=== PATIENT | male | born 1930 | race Caucasian/White ===

== ENCOUNTER 2016-10-31 13:46 | Emergency (ER) | payer OTHER ==
[~2016-10-31] VITALS: Ht 170.2 cm; Wt 90.0 kg
[~2016-10-31 13:46] MED LIST: TAMS0.4C67 PO
[2016-10-31 13:50] VITALS: BP 182/108; PULSE 101; RESP 16; TEMP 97.5; O2SAT 96
--- NOTE | 2016-10-31 14:05 | PD ---
HPI Chief Complaint: Complaint Time Seen by Provider: 14:03 Travel History International Travel<30 days: No Contact w/Intl Traveler<30days: No Traveled to known affect area: No History of Present Illness HPI 85-year-old male with PMH of non-Hodgkin's lymphoma, prostate cancer, IBS presents to the ED for evaluation of ~ 24 hour history of anuria. Patient denies headache, fever, chills, chest pain, shortness of breath, abdominal pain , anorexia, changes in bowel habits, nausea, vomiting, dysuria, weakness of the lower extremities. The patient's daughter is at bedside, she is a nurse and states that she administers his medications. She thinks he may been taking double doses of Flomax, and stopped his doses for the last 2 days. Patient is followed by primary care, Dr. Resendiz urology. PFSH Past Medical History Arthritis: Yes (spondilosis) Cancer: Yes (NON-HODGKINS LYMPHONA,prostate ca- hormonone shots) Cardiovascular Problems: No Chemotherapy: Yes (5-10 YEARS AGO) Diminished Hearing: Yes (KLAMATH) Endocrine: No Gastrointestinal Disorders: Yes (IBS) Genitourinary: No Hypertension: Yes Immune Disorder: No Musculoskeletal: No Neurologic: No Psychiatric: No Reproductive: No Respiratory: No Past Surgical History Abdominal Surgery: Yes (gallbladder, appendix) Appendectomy: Yes Cholecystectomy: Yes Other Surgery: Yes (see hx) Social History Alcohol Use: Yes (SOC) Tobacco Use: No Substance Use: No Allergies-Medications (Allergen,Severity, Reaction): Coded Allergies: Bee Sting (Verified Allergy, Severe, Anaphylaxis, 10/31/16) Penicillin (Verified Allergy, Intermediate, Swelling, 10/31/16) Vancomycin (Verified Allergy, Intermediate, Rash, 10/31/16) rash all over body Reported Meds & Prescriptions Reported Meds & Active Scripts Active Reported Flomax (Tamsulosin HCl) 0.4 Mg Cap 0.4 Mg PO HS Review of Systems Except as stated in HPI: all other systems reviewed are Neg Physical Exam Narrative GENERAL: Well-nourished, well-developed nontoxic appearing white male in mild to moderate distress. SKIN: Warm and dry. HEAD: Normocephalic. EYES: No scleral icterus. No injection or drainage. NECK: Supple, trachea midline. No JVD or lymphadenopathy. CARDIOVASCULAR: Regular rate and rhythm without murmurs, gallops, or rubs. 2+ DP and radial pulses bilaterally. RESPIRATORY: Breath sounds clear and equal bilaterally. No accessory muscle use. GASTROINTESTINAL: Abdomen protuberant, soft, non-tender, nondistended. Active bowel sounds. MUSCULOSKELETAL: No cyanosis, or edema. The patient is ambulatory, moves extremities spontaneously. BACK: Nontender without obvious deformity. No CVA tenderness. Data Data Last Documented VS Vital Signs Date Time Temp Pulse Resp B/P Pulse Ox O2 Delivery O2 Flow Rate FiO2 10/31/16 16:09 100 17 122/81 95 Room Air 10/31/16 13:50 97.5 Orders Complete Blood Count With Diff (10/31/16 14:05) Comprehensive Metabolic Panel (10/31/16 14:05) Urinalysis - C+S If Indicated (10/31/16 14:05) Iv Access Insert/Monitor (10/31/16 14:05) Sodium Chloride 0.9% Flush (Ns Flush) (10/31/16 14:15) Urinary Catheter Insert/Apply (10/31/16 14:05) Labs Laboratory Tests Test 10/31/16 10/31/16 14:25 14:35 White Blood Count 8.4 TH/MM3 Red Blood Count 4.98 MIL/MM3 Hemoglobin 15.2 GM/DL Hematocrit 44.4 % Mean Corpuscular Volume 89.1 FL Mean Corpuscular Hemoglobin 30.5 PG Mean Corpuscular Hemoglobin 34.2 % Concent Red Cell Distribution Width 14.4 % Platelet Count 259 TH/MM3 Mean Platelet Volume 7.3 FL Neutrophils (%) (Auto) 65.6 % Lymphocytes (%) (Auto) 27.5 % Monocytes (%) (Auto) 6.1 % Eosinophils (%) (Auto) 0.3 % Basophils (%) (Auto) 0.5 % Neutrophils # (Auto) 5.5 TH/MM3 Lymphocytes # (Auto) 2.3 TH/MM3 Monocytes # (Auto) 0.5 TH/MM3 Eosinophils # (Auto) 0.0 TH/MM3 Basophils # (Auto) 0.0 TH/MM3 CBC Comment DIFF FINAL Differential Comment Sodium Level 139 MEQ/L Potassium Level 4.3 MEQ/L Chloride Level 105 MEQ/L Carbon Dioxide Level 28.5 MEQ/L Anion Gap 6 MEQ/L Blood Urea Nitrogen 26 MG/DL Creatinine 1.77 MG/DL Estimat Glomerular Filtration 37 ML/MIN Rate Random Glucose 106 MG/DL Calcium Level 9.2 MG/DL Total Bilirubin 0.5 MG/DL Aspartate Amino Transf 17 U/L (AST/SGOT) Alanine Aminotransferase 18 U/L (ALT/SGPT) Alkaline Phosphatase 63 U/L Total Protein 8.4 GM/DL Albumin 3.7 GM/DL Urine Color YELLOW Urine Turbidity CLEAR Urine pH 5.0 Urine Specific [place] 1.017 Urine Protein TRACE mg/dL Urine Glucose (UA) NEG mg/dL Urine Ketones NEG mg/dL Urine Occult Blood TRACE Urine Nitrite NEG Urine Bilirubin NEG Urine Urobilinogen LESS THAN 2.0 MG/DL Urine Leukocyte Esterase NEG Urine RBC 1 /hpf Urine WBC LESS THAN 1 /hpf Urine Squamous Epithelial <1 /hpf Cells Urine Bacteria RARE /hpf Microscopic Urinalysis Comment CULT NOT INDICATED MDM Medical Decision Making Medical Screen Exam Complete: Yes Emergency Medical Condition: Yes Differential Diagnosis Urinary retention versus urinary obstruction versus CHANDNI versus dehydration versus electrolyte abnormality versus other Narrative Course 85-year-old male with PMH of non-Hodgkin's lymphoma, prostate cancer, IBS presents to the ED for evaluation of ~ 24 hour history of anuria. Patient denies headache, fever, chills, chest pain, shortness of breath, abdominal pain , anorexia, changes in bowel habits, nausea, vomiting, dysuria, weakness of the lower extremities. The patient's daughter is at bedside, she is a nurse and states that she administers his medications. She thinks he may been taking double doses of Flomax, and stopped his doses for the last 2 days. Patient is followed by primary care, Dr. Resendiz urology. Vitals reviewed. Physical exam reveals a nontoxic-appearing elderly white male in mild to moderate distress. Abdomen is soft, tender in the suprapubic region. No CVA tenderness. No lower extremity edema. Salgado catheter was inserted and 400 cc of pale, clear urine were drained immediately. Over the course of treatment presently 800 cc of urine were collected. CBC is unremarkable. CMP with BUN of 26, creatinine 1.77. Creatinine similar to patient's baseline. No culture indicated of the UA. Call placed to Dr. Resendiz who agrees to see the patient in the office for follow-up. Discussed the patient, laboratory results, plan of care with Dr. Fernandez who is amenable. Patient is instructed to resume Flomax, leave the catheter indwelling until seen by urology, call Dr. Resendiz's office tomorrow morning for follow-up appointment. The patient and his family indicated understanding of the instructions, are amenable to the plan of care. The patient is stable and discharged home. Diagnosis Primary Impression: Urinary retention Referrals: Urologist Patient Instructions: Salgado Catheter Placement and Care (ED), General Instructions, Urinary Retention in Men (ED) Additional Instructions: Restart Flomax as previously prescribed. Call Dr. Resendiz's office for follow up appointment tomorrow morning. Leave catheter in place until removed by Dr. Resendiz Return to the ED for any urgent or emergent medical condition. Disposition: 01 DISCHARGE HOME Condition: Stable Lyn Rubin Oct 31, 2016 14:05
[2016-10-31] MEDS ORDERED: SODIUM CHLORIDE 0.9% FLUSH 5 ML FLUSH IVF PRN (14:15)
[2016-10-31] MEDS ORDERED: TAMS5CAP PO (14:25)
[2016-10-31 15:01] LABS: BACTERIA, URINE RARE /hpf; BLOOD, URINE TRACE (NEG); COMMENT (UR) CULT NOT INDICATED; CULTURE IF INDICATED CULT NOT INDICATED; GLUCOSE,URINE NEG (NEG); KETONE, URINE NEG (NEG); NITRITE,URINE NEG (NEG); SQUAMOUS EPITHELIAL CELL URINE <1 /hpf (0-5); URINE COLOR YELLOW (YELLW/STRAW)
[2016-10-31 15:04] LABS: AUTOMATED NEUTROPHIL # 5.5 TH/MM3 (1.8-7.7); BASOPHIL % 0.5 % (0.0-2.0); EOSINOPHIL % 0.3 % (0.0-4.0); HEMATOCRIT 44.4 % (39.0-51.0); HEMO FLAGS DIFF FINAL; LYMPH % 27.5 % (9.0-44.0); LYMPHOCYTE # 2.3 TH/MM3 (1.0-4.8); MEAN CELL VOLUME 89.1 FL (80.0-100.0); MEAN CORPUSCULAR HEMOGLOBIN 30.5 PG (27.0-34.0); MEAN CORPUSCULAR HGB CONC 34.2 % (32.0-36.0); MONO % 6.1 % (0.0-8.0); NEUT % 65.6 % (16.0-70.0); PLATELET COUNT 259 TH/MM3 (150-450); RED BLOOD COUNT 4.98 MIL/MM3 (4.50-5.90); RED CELL DISTRIBUTION WIDTH 14.4 % (11.6-17.2); WHITE BLOOD COUNT 8.4 TH/MM3 (4.0-11.0)
[2016-10-31 15:14] LABS: ALT (GPT) 18 U/L (12-78); ANION GAP 6 MEQ/L (5-15); AST (GOT) 17 U/L (15-37); BICARBONATE 28.5 MEQ/L (21.0-32.0); BLOOD UREA NITROGEN 26 MG/DL (7-18); CHLORIDE 105 MEQ/L (98-107); GLOMERULAR FILTRATION RATE 37 ML/MIN (>89); POTASSIUM 4.3 MEQ/L (3.5-5.1); SODIUM (NA) 139 MEQ/L (136-145)
[2016-10-31 15:16] LABS: ALKALINE PHOSPHATASE 63 U/L (45-117); TOTAL BILIRUBIN ADULT 0.5 MG/DL (0.2-1.0)
[2016-10-31 16:09] VITALS: BP 122/81; PULSE 100; RESP 17; O2SAT 95
== END 2016-10-31 16:25 | disposition home or self-care (01) ==
LOC: NETRI 13:46
DX: R33.9 Retention of urine, unspecified (principal); I10 Essential (primary) hypertension
CPT/HCPCS: 51702; 80053; 81001; 85025

== ENCOUNTER 2017-10-06 07:23 | Emergency (ER) | payer OTHER ==
[~2017-10-06] VITALS: Ht 167.6 cm; Wt 85.0 kg
[~2017-10-06 07:23] MED LIST changes: -TAMS0.4C67 PO; +TAMS5CAP PO
[2017-10-06 07:32] VITALS: BP 164/96; PULSE 114; RESP 22; TEMP 98.2; O2SAT 93
--- NOTE | 2017-10-06 07:57 | PD ---
HPI Chief Complaint: Complaint Time Seen by Provider: 07:44 Travel History International Travel<30 days: No Contact w/Intl Traveler<30days: No Traveled to known affect area: No History of Present Illness HPI The patient is a 86-year-old male who presents to the emergency department for inability to urinate since last night. The patient complains of mild overflow incontinence, states he's been to the bathroom multiple times, but is unable to urinate. He does have a history of similar symptoms in the past and has a history of prostate cancer. The patient is followed by his urologist, Dr. Resendiz, as well as his oncologist, Dr. Prieto. The patient does complain of mild abdominal distention and pain. He denies any nausea, vomiting, or low back pain. Symptoms are moderate, exacerbated by the inability urinate, and there are no current alleviating factors. He denies any CC fever. PFSH Past Medical History Arthritis: Yes (spondilosis) Cancer: Yes (NON-HODGKINS LYMPHONA,prostate ca- hormonone shots) Cardiovascular Problems: No Chemotherapy: Yes Diminished Hearing: Yes (TAZLINA) Endocrine: No Gastrointestinal Disorders: Yes (IBS) Genitourinary: No Hypertension: Yes Immune Disorder: No Musculoskeletal: No Neurologic: No Psychiatric: No Reproductive: No Respiratory: No Past Surgical History Abdominal Surgery: Yes (gallbladder, appendix) Appendectomy: Yes Cholecystectomy: Yes Other Surgery: Yes (see hx) Social History Alcohol Use: Yes (SOC) Tobacco Use: No Substance Use: No Allergies-Medications (Allergen,Severity, Reaction): Coded Allergies: bee venom protein (honey bee) (Unverified Allergy, Severe, Anaphylaxis, ) penicillin G (Unverified Allergy, Intermediate, Swelling, 05/20/17) vancomycin (Unverified Allergy, Intermediate, Rash, 05/20/17) rash all over body Reported Meds & Prescriptions Reported Meds & Active Scripts Active Reported Flomax (Tamsulosin HCl) 0.4 Mg Cap 0.4 Mg PO HS Review of Systems Except as stated in HPI: all other systems reviewed are Neg General / Constitutional: No: Fever Cardiovascular: No: Chest Pain or Discomfort Respiratory: No: Shortness of Breath Gastrointestinal: Positive: Abdominal Pain, No: Nausea, Vomiting Genitourinary: Positive: Decreased Urinary Output, Hesitancy, Dribbling, Incontinence, Pelvic Pain, No: Dysuria Skin: Positive Rash Physical Exam Narrative GENERAL: Awake, alert, pleasant 86-year-old male who appears his stated age and is in no acute respiratory distress. He does appear moderate discomfort. SKIN: Focused skin assessment warm/dry. Patient has a slightly erythematous, slightly excoriated rash and medial aspect of the thighs bilateral, appears to be from repetitive contact, thigh against 5. HEAD: Atraumatic. Normocephalic. EYES: No injection or drainage. ENT: No nasal bleeding or discharge. Mucous membranes pink and moist. NECK: Trachea midline. No JVD. CARDIOVASCULAR: Regular, tachycardic with a heart rate of 105. RESPIRATORY: No accessory muscle use. Clear to auscultation. Breath sounds equal bilaterally. GASTROINTESTINAL: Abdomen distended in the suprapubic region. Old surgical scars noted. MUSCULOSKELETAL: No obvious deformities. No clubbing. No cyanosis. No edema. NEUROLOGICAL: Awake and alert. No obvious cranial nerve deficits. Motor grossly within normal limits. Normal speech. PSYCHIATRIC: Appropriate mood and affect; insight and judgment normal. Data Data Last Documented VS Vital Signs Date Time Temp Pulse Resp B/P (MAP) Pulse Ox O2 Delivery O2 Flow Rate FiO2 10/06/17 07:32 98.2 114 22 164/96 (118) 93 Orders Orders Urinary Catheter Insert/Apply (10/06/17 07:53) Urinalysis - C+S If Indicated (10/06/17 07:53) Basic Metabolic Panel (Bmp) (10/06/17 07:53) Ed Discharge Order (10/06/17 09:06) Labs Laboratory Tests Test 10/06/17 08:15 Urine Color YELLOW Urine Turbidity CLEAR Urine pH 5.0 Urine Specific [place] 1.010 Urine Protein NEG mg/dL Urine Glucose (UA) NEG mg/dL Urine Ketones NEG mg/dL Urine Occult Blood MOD Urine Nitrite NEG Urine Bilirubin NEG Urine Urobilinogen LESS THAN 2.0 MG/DL Urine Leukocyte Esterase NEG Urine RBC 77 /hpf Urine WBC LESS THAN 1 /hpf Urine Amorphous Sediment RARE Urine Mucus FEW /lpf Microscopic Urinalysis Comment CATH-CULT NOT IND Blood Urea Nitrogen 46 MG/DL Creatinine 3.07 MG/DL Random Glucose 133 MG/DL Calcium Level 8.9 MG/DL Sodium Level 137 MEQ/L Potassium Level 6.0 MEQ/L Chloride Level 106 MEQ/L Carbon Dioxide Level 23.2 MEQ/L Anion Gap 8 MEQ/L Estimat Glomerular Filtration Rate 19 ML/MIN MDM Medical Decision Making Medical Screen Exam Complete: Yes Emergency Medical Condition: Yes Medical Record Reviewed: Yes Interpretation(s) Laboratory Tests Test 10/06/17 08:15 Urine Color YELLOW Urine Turbidity CLEAR Urine pH 5.0 Urine Specific [place] 1.010 Urine Protein NEG mg/dL Urine Glucose (UA) NEG mg/dL Urine Ketones NEG mg/dL Urine Occult Blood MOD Urine Nitrite NEG Urine Bilirubin NEG Urine Urobilinogen LESS THAN 2.0 MG/DL Urine Leukocyte Esterase NEG Urine RBC 77 /hpf Urine WBC LESS THAN 1 /hpf Urine Amorphous Sediment RARE Urine Mucus FEW /lpf Microscopic Urinalysis Comment CATH-CULT NOT IND Blood Urea Nitrogen 46 MG/DL Creatinine 3.07 MG/DL Random Glucose 133 MG/DL Calcium Level 8.9 MG/DL Sodium Level 137 MEQ/L Potassium Level 6.0 MEQ/L Chloride Level 106 MEQ/L Carbon Dioxide Level 23.2 MEQ/L Anion Gap 8 MEQ/L Estimat Glomerular Filtration Rate 19 ML/MIN Differential Diagnosis Differential diagnosis includes urinary retention, BPH, prostate cancer, UTI, acute kidney injury, dehydration. Narrative Course A bedside ultrasound was performed which reveals a distended bladder up to the umbilicus. Therefore, Salgado catheter was ordered. UA was sent to lab. BMP was sent to lab. The patient's UA reveals RBCs, no evidence of infection. The patient had over 800 cc of clear yellow output, his symptoms significantly improved. Creatinine was elevated at 3.07, last creatinine was 1.77 October. I do discussion with family members who do state that the patient has had elevated creatinines in the past. The patient will be provided a copy of his labs and his Salgado catheter was changed to a leg bag. He is advised to follow-up with his urologist and primary physician. Return if symptoms worsen or progress. Diagnosis Primary Impression: Urinary retention Patient Instructions: General Instructions Additional Instructions: Continue Flomax as previously directed. Follow-up with your urologist and primary physician. You will need repeat creatinine studies. Return if symptoms worsen or progress. Med/Other Pt SpecificInfo: No Change to Meds Disposition: 01 DISCHARGE HOME Condition: Stable Maurice Hart MD Oct 06, 2017 07:57
[2017-10-06 08:32] LABS: AMORPHOUS SEDIMENT, URINE RARE; BILIRUBIN, URINE NEG (NEG); BLOOD, URINE MOD (NEG); GLUCOSE,URINE NEG (NEG); KETONE, URINE NEG (NEG); MUCUS URINE FEW /lpf (OCC); NITRITE,URINE NEG (NEG); URINE COLOR YELLOW (YELLW/STRAW); URINE LEUKOCYTE ESTERASE NEG (NEG)
[2017-10-06 08:45] LABS: BICARBONATE 23.2 MEQ/L (21.0-32.0); CALCIUM 8.9 MG/DL (8.5-10.1); CREATININE 3.07 MG/DL (0.60-1.30)
[2017-10-06 09:17] VITALS: BP 156/82
== END 2017-10-06 09:49 | disposition home or self-care (01) ==
LOC: NEPC 07:23
DX: R33.9 Retention of urine, unspecified (principal); R21 Rash and other nonspecific skin eruption; M19.90 Unspecified osteoarthritis, unspecified site; I10 Essential (primary) hypertension; Z79.899 Other long term (current) drug therapy; Z88.0 Allergy status to penicillin; Z85.46 Personal history of malignant neoplasm of prostate; Z87.19 Personal history of other diseases of the digestive system; Z88.5 Allergy status to narcotic agent
CPT/HCPCS: 51702; 80048; 81001

== ENCOUNTER 2018-08-30 15:07 | Inpatient (IN) ==
--- NOTE | 2018-08-30 18:33 | ED ---
HPI General Chief complaint: Weakness Stated complaint: Neck Pain Time Seen by Provider: 08/30/18 17:27 Source: family Mode of arrival: wheelchair Limitations: other (confused) History of Present Illness HPI Narrative: Patient is an 87-year-old male presented to the emerge department with his daughter for evaluation of weakness, decreased appetite and increased confusion. Daughter states is been ongoing for a week. She states that he is not eating or drinking very much. She reports that he normally is able to walk with a walker but now needs to be transported with a wheelchair. She states that he is acting more confused. She states that he is complaining of neck pain, she has been giving him Aleve twice daily. She states this is not helping. Patient's daughter has not attempted to contact the primary doctor. She reports a history of prostate cancer and lymphoma. Daughter denies any falls or head injuries. Patient is stating that he is cold and does not offer any further information. MD Complaint: Reports generalized weakness Onset (ago): week(s) Duration: constant Location: Reports generalized Migration: Reports none Severity: moderate Relieving factors: none Exacerbating factors: none Associated symptoms: Reports confusion and myalgias Related Data Home Medications Medication Instructions Recorded Confirmed aspirin 81 mg PO DAILY 08/30/18 08/30/18 mirabegron [Myrbetriq] 25 mg PO DAILY 08/30/18 08/30/18 tamsulosin [Flomax] 0.4 mg PO BID 08/30/18 08/30/18 Allergies Allergy/AdvReac Type Severity Reaction Status Date / Time bee venom protein (honey bee) Allergy Severe Anaphylaxis Unverified 05/20/17 17: 08 penicillin G Allergy Intermediate Swelling Unverified 05/20/17 17:08 vancomycin Allergy Intermediate Rash Unverified 05/20/17 17:08 Review of Systems ROS: all other systems reviewed are negative [facility] Medical History Medical History Lymphoma (Acute) Overactive bladder (Acute) Prostate CA (Acute) Social History Social History Substance History: No History of Abuse Second Hand Smoke Exposure: No Smoking Status: Former smoker Tobacco Type: Cigarettes How Often Do You Have a Drink Containing Alcohol: Never Recent Travel in [facility] within the Last 8 Weeks: No Recent Out of Country Travel within the Last 8 Weeks: No Immunization History Tetanus Immunization: Unsure Exam Narrative Exam Narrative: GENERAL: Well-developed, well-nourished, alert elderly male. Presenting in no acute distress. SKIN: Focused skin assessment warm/dry. HEAD: Atraumatic. Normocephalic. EYES: Pupils equal and round. No scleral icterus. No injection or drainage. ENT: No nasal bleeding or discharge. Mucous membranes pink and moist. NECK: Trachea midline. No JVD. CARDIOVASCULAR: Regular rate and rhythm. No murmur appreciated. RESPIRATORY: No accessory muscle use. Clear, diminished in bases. GASTROINTESTINAL: Abdomen firm, mildly tender diffusely, mildly distended. Hepatic and splenic margins not palpable. Positive bowel sounds. MUSCULOSKELETAL: No obvious deformities. No clubbing. No cyanosis. No edema. NEUROLOGICAL: Awake and alert. No obvious cranial nerve deficits. Motor grossly within normal limits. Normal speech. PSYCHIATRIC: Appropriate mood and affect; insight and judgment impaired. Course Initial Documented Vital Signs Temperature 98 F 08/30/18 15:20 Pulse Rate 95 H 08/30/18 15:20 Respiratory Rate 20 08/30/18 15:20 Blood Pressure 151/80 H 08/30/18 15:20 Pulse Oximetry 99 08/30/18 15:20 Last Documented Vital Signs Temperature 97.9 F 08/30/18 22:09 Pulse Rate 116 H 08/30/18 22:09 Respiratory Rate 22 08/30/18 22:09 Blood Pressure 147/89 H 08/30/18 22:36 Pulse Oximetry 95 08/30/18 22:09 Medical Decision Making [facility] Narrative Medical decision making narrative: Patient presented for evaluation of generalized weakness. Labs and imaging ordered and pending. Patient's vital signs are stable. Patient was placed on electronic device monitor, continuous pulse oximetry. IV access was established. Daughter is at bedside. EKG reviewed. Chemistry with elevated BUN and creatinine of 156/16.3, K+ 6.7. Medications ordered to correct electrolyte abnormality. CT of the abdomen shows distended urinary bladder, likely outlet obstruction, enlarged prostate. A urinary catheter was placed and 1500cc urine drained. Initially patient was straight cathed for urine sample and 1200cc was obtained at that time. UA and CBC with no acute findings however HGB trended down since prior in October 2017. Ct of the brain and cervical spine with no acute findings, CXR with no acute disease. Findings discussed with my attending. Discussed with Dr. Mcfadden, nephrology who recommended IVF and urinary catheter. Paged [facility] for admit, discussed with Dr. Marina who accepted admit. Orders placed. Discussed with family at bedside, all questions answered. Medical Screen Exam Complete: Yes Emergency Medical Condition: Yes Differential Diagnosis Differential Diagnosis: UTI versus metabolic abnormality versus TIA versus other Medical Records Medical records reviewed: Yes I reviewed the patient's medical records. Lab Data Lab results reviewed: Yes I reviewed the patient's lab results. Result diagrams: 08/30/18 18:00 08/30/18 18:00 Lab Results 08/30/18 08/30/18 08/30/18 Range/Units 18:00 18:00 Unknown WBC 10.4 (4.0-11.0) th/mm3 RBC 3.28 L (4.50-5.90) mil/mm3 Hgb 10.8 L (13.0-17.0) gm/dL Hct 31.5 L (39.0-51.0) % MCV 96.2 (80.0-100.0) fL MCH 32.9 (27.0-34.0) pg MCHC 34.2 (32.0-36.0) % RDW 13.5 (11.6-17.2) % Plt Count 304 (150-450) th/mm3 MPV 7.3 (7.0-11.0) fL Neut % (Auto) 81.6 H (16.0-70.0) % Lymph % (Auto) 12.7 (9.0-44.0) % [place] % (Auto) 4.1 (0.0-8.0) % Eos % (Auto) 1.2 (0.0-4.0) % Baso % (Auto) 0.4 (0.0-2.0) % Neut # (Auto) 8.5 H (1.8-7.7) th/mm3 Lymph # (Auto) 1.3 (1.0-4.8) th/mm3 [place] # (Auto) 0.4 (0.0-0.9) th/mm3 Eos # (Auto) 0.1 (0.0-0.4) th/mm3 Baso # (Auto) 0.0 (0.0-0.2) th/mm3 WBC Differential . Differential Comment Auto diff final Sodium 134 L (136-145) meq/L Potassium 6.7 H* (3.5-5.1) meq/L Chloride 101 (98-107) meq/L Carbon Dioxide 16.3 L (21.0-32.0) meq/L Anion Gap 17 H (5-15) meq/L BUN 156 H (7-18) mg/dL Creatinine 16.36 H* (0.60-1.30) mg/dL Estimated GFR 3 L (>89) mL/min Random Glucose 94 (74-106) mg/dL Calcium 6.5 L* (8.5-10.1) mg/dL Prot Corrected Calcium 6.4 L* (8.5-10.1) mg/dL Magnesium 1.8 (1.5-2.5) mg/dL Total Bilirubin 1.4 H (0.2-1.0) mg/dL AST 18 (15-37) U/L ALT 14 (12-78) U/L Alkaline Phosphatase 45 (45-117) U/L Total Creatine Kinase 375 H (39-308) U/L CK-MB (CK-2) 9.5 H (0.5-3.6) ng/mL CK-MB (CK-2) % 2.5 (0.0-4.0) % Troponin I 0.04 (0.02-0.05) ng/mL Total Protein 7.5 (6.4-8.2) g/dL Albumin 2.8 L (3.4-5.0) g/dL Urine Color Yellow (Yellw/Straw) Urine Clarity Clear (Clear) Urine pH 5.0 (5.0-8.5) Ur Specific [place] 1.011 (1.002-1.035) Urine Protein 30 H (Neg-Trace) mg/dL Urine Glucose (UA) Negative (Negative) mg/dL Urine Ketones Negative (Negative) mg/dL Urine Occult Blood Moderate H (Negative) Urine Nitrate Negative (Negative) Urine Bilirubin Negative (Negative) Urine Urobilinogen Less than 2 (Less than 2) mg/dL Ur Leukocyte Esterase Negative (Negative) Urine RBC 7 H (0-3) /hpf Urine WBC 1 (0-5) /hpf Urine Mucus Few H (Occasional) /lpf Micro UA Comment Culture not ind Ur Microscopic Review Not Reportable Urine Culture Comments Culture not ind Imaging Data Radiologist's impression: Chest X-Ray 08/30/18 18:00 CONCLUSION: 1. Senescent changes with mild bibasilar airspace disease, presumably atelectasis. 2. Bilateral pleural plaques. Head CT 08/30/18 18:00 CONCLUSION: 1. No acute intracranial abnormality. 2. Atrophy and chronic white matter changes. . Cervical Spine CT 08/30/18 18:01 CONCLUSION: 1. No fracture or subluxation of the cervical spine. 2. Multilevel degenerative changes as described. 3. Moderate chronic appearing spinal stenosis with probable short segment cord compression at C3/C4. Abdomen/Pelvis CT 08/30/18 19:21 CONCLUSION: 1. Markedly distended urinary bladder at the time of imaging and of concern for bladder outlet obstruction. Etiology uncertain but prostate is mildly enlarged. There is associated hydronephrosis of both kidneys. No stones are demonstrated. 2. Small hiatal hernia. 3. Atherosclerotic abdominal aorta. 4. 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 Discharge Plan Discharge Disposition Patient Disposition: 30 Still Patient Discharge Condition Condition: Stable Discharge Details Diagnosis: Acute renal failure, Bladder outlet obstruction, Prostate cancer, Weakness Physicians Team ED Provider: Melanie Sauer ED Midlevel Provider: Breanna Tapia Primary Care Provider: Margi Amaya Attending Provider: Janiya Marina Other Providers: Teresa Mcfadden ; [employer] Status ED Status: Left Department Discharge Information Discharge Date/Time: 08/30/18 22:09
--- NOTE | 2018-08-30 18:36 | XR ---
EXAM DATE: 08/30/2018 6:33 PM EST AGE/SEX: 87 years / Male INDICATIONS: Shortness of breath. CLINICAL DATA: This is the patient's initial encounter. Patient reports that signs and symptoms have been present for 1 day and indicates a pain score of Nonresponsive. MEDICAL/SURGICAL HISTORY: Non-responsive. Non-responsive. COMPARISON: [facility] – [place] ABDOM[place] & PELVIS W CONTRAST, 08/30/2018. . FINDINGS: Diffuse interstitial prominence with mild bibasilar airspace disease. Diffuse bilateral pleural plaqu es. Cardiac silhouette is in the upper limits of normal given portable technique. Bony thorax is inta ct. CONCLUSION: 1. Senescent changes with mild bibasilar airspace disease, presumably atelectasis. 2. Bilateral pleural plaques. Electronically signed by: Edison Robles MD 08/30/2018 6:35 PM EST
[2018-08-30 18:37] LABS: Baso % (Auto) 0.4 % (0.0-2.0); Eos # (Auto) 0.1 th/mm3 (0.0-0.4); Eos % (Auto) 1.2 % (0.0-4.0); Hematocrit 31.5 % (39.0-51.0); Hemoglobin 10.8 gm/dL (13.0-17.0); Lymph # (Auto) 1.3 th/mm3 (1.0-4.8); Lymph % (Auto) 12.7 % (9.0-44.0); Mean Corpuscular HGB Conc 34.2 % (32.0-36.0); Mean Corpuscular Hemoglobin 32.9 pg (27.0-34.0); Mean Corpuscular Volume 96.2 fL (80.0-100.0); Mean Platelet Volume 7.3 fL (7.0-11.0); Mono # (Auto) 0.4 th/mm3 (0.0-0.9); Mono % (Auto) 4.1 % (0.0-8.0); Neut # (Auto) 8.5 th/mm3 (1.8-7.7); Neut % (Auto) 81.6 % (16.0-70.0); Platelet Count 304 th/mm3 (150-450); Red Blood Count 3.28 mil/mm3 (4.50-5.90); Red Cell Distribution Width 13.5 % (11.6-17.2); White Blood Count 10.4 th/mm3 (4.0-11.0)
[2018-08-30 18:56] LABS: Bilirubin,Urine Negative (Negative); Clarity,Urine Clear (Clear); Color,Urine Yellow (Yellw/Straw); Glucose,Urine (UA) Negative (Negative); Leukocyte Esterase,Urine Negative (Negative); Mucus,Urine Few /lpf (Occasional); Nitrite,Urine Negative (Negative); Specific Gravity,Urine 1.011 (1.002-1.035)
[2018-08-30 19:08] LABS: Albumin 2.8 g/dL (3.4-5.0); Calcium 6.5 mg/dL (8.5-10.1); Carbon Dioxide 16.3 meq/L (21.0-32.0); Magnesium 1.8 mg/dL (1.5-2.5); Total Protein 7.5 g/dL (6.4-8.2); Troponin I 0.04 ng/mL (0.02-0.05)
[2018-08-30 19:10] LABS: Potassium 6.7 meq/L (3.5-5.1)
[2018-08-30 19:23] LABS: CKMB Percent 2.5 % (0.0-4.0); Creatine Kinase MB 9.5 ng/mL (0.5-3.6)
[2018-08-30] MEDS ORDERED: Dextrose 50% in Water 50 ML Vial IV.PUSH ONE (20:12)
[2018-08-30] MEDS ORDERED: Sodium Polystyrene Sulfonate/Sorbitol Liq 15 GM/60 ML UDC PO ONE (20:12)
[2018-08-30] MEDS ORDERED: Calcium Gluconate Inj 1 GM in Sodium Chlor 0.9% Inj 100 ML IV.SIG ONE (20:12)
--- NOTE | 2018-08-30 20:19 | CT ---
EXAM DATE: 08/30/2018 8:09 PM EST AGE/SEX: 87 years / Male INDICATIONS: Abdomen pain. CLINICAL DATA: This is the patient's initial encounter. Patient reports that signs and symptoms have been present for 1 day and indicates a pain score of 0/10. MEDICAL/SURGICAL HISTORY: Lymphoma. Carcinoma, prostatic. Appendectomy. Cholecystectomy. RADIATION DOSE: 7.74 CTDI (mGy) COMPARISON: [facility] [place], CT ABDOMEN & PELVIS W CONTRAST, 07/30/2014. . TECHNIQUE: Multiple contiguous axial images were obtained through the abdomen. Images were obtained using multiple row detector helical technique. Using automated exposure control and adjustment of the mA and/or kV according to patient size, radiation dose was kept as low as reasonably achievable to o btain optimal diagnostic quality images. DICOM format image data is available electronically for rev iew and comparison. FINDINGS: Noncontrast appearance of the liver, spleen, pancreas and adrenal glands is within normal l imits. Mild to moderate hydronephrosis/hydroureter seen of both kidneys. The urinary bladder is markedly dis tended. 4.8 cm prostate. 2 cm benign cyst of the right kidney is stable. No obstruction or acute inflammatory changes are seen of the gastrointestinal tract. No free fluid or free air. No lymphadenopathy demonstrated. There is a small hiatal hernia. Abdominal aorta is athero sclerotic. No aneurysm. No infiltrate or effusion of the visualized lung bases. Chronic calcified pleural plaques are again n oted. No lytic or sclerotic lesions or other acute abnormalities are seen of the visualized osseous structu res. CONCLUSION: 1. Markedly distended urinary bladder at the time of imaging and of concern for bladder outlet obstr uction. Etiology uncertain but prostate is mildly enlarged. There is associated hydronephrosis of bot h kidneys. No stones are demonstrated. 2. Small hiatal hernia. 3. Atherosclerotic abdominal aorta. 4. 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 Electronically signed by: Erwin Watson MD 08/30/2018 8:18 PM EST
--- NOTE | 2018-08-30 20:20 | CT ---
EXAM DATE: 08/30/2018 8:10 PM EST AGE/SEX: 87 years / Male INDICATIONS: Altered mental status. CLINICAL DATA: This is the patient's initial encounter. Patient reports that signs and symptoms have been present for 1 week and indicates a pain score of 0/10. MEDICAL/SURGICAL HISTORY: Lymphoma. Carcinoma, prostatic. Appendectomy. Cholecystectomy. RADIATION DOSE: 66.26 CTDI (mGy) COMPARISON: No prior exams available for comparison. TECHNIQUE: CT of the head without contrast. Using automated exposure control and adjustment of the mA and/or kV according to patient size, radiation dose was kept as low as reasonably achievable to ob tain optimal diagnostic quality images. DICOM format image data is available electronically for revi ew and comparison. FINDINGS: Cerebrum: The ventricles are normal for age. No evidence of midline shift, mass lesion, hemorrhage or acute infarction. No extraaxial fluid collections are seen. There is chronic appearing low-attenu ation in the periventricular white matter of both cerebral hemispheres. Mild atrophy is present. Posterior Fossa: The cerebellum and brainstem are intact. The 4th ventricle is midline. The cerebe llopontine angle is unremarkable. Extracranial: The visualized portion of the orbits is intact. Skull: The calvaria is intact. No evidence of skull fracture. CONCLUSION: 1. No acute intracranial abnormality. 2. Atrophy and chronic white matter changes. . Electronically signed by: Erwin Watson MD 08/30/2018 8:19 PM EST
--- NOTE | 2018-08-30 20:27 | CT ---
EXAM DATE: 08/30/2018 8:11 PM EST AGE/SEX: 87 years / Male INDICATIONS: Neck pain. CLINICAL DATA: This is the patient's initial encounter. Patient reports that signs and symptoms have been present for 1 day and indicates a pain score of 0/10. MEDICAL/SURGICAL HISTORY: Lymphoma. Carcinoma, prostatic. Appendectomy. Cholecystectomy. RADIATION DOSE: 20.19 CTDI (mGy) COMPARISON: No prior exams available for comparison. TECHNIQUE: Contiguous axial images were obtained using helical multirow detector technique. The vol umetric data was post-processed with multiplanar reconstruction in oblique axial, sagittal, and coron al planes. Using automated exposure control and adjustment of the mA and/or kV according to patient s ize, radiation dose was kept as low as reasonably achievable to obtain optimal diagnostic quality bill ges. DICOM format image data is available electronically for review and comparison. FINDINGS: No fracture or subluxation demonstrated of the cervical spine. Vertebral bodies have normal height. 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 No associated stenosis dem onstrated. C2-3: The disc has mild loss of height. There is mild right and moderate left uncovertebral and fac et osteoarthritis. Mild left foraminal stenosis. C3-4: The disc has moderate loss of height. There is a small to moderate, broad posterior disc osteo phyte complex and moderate to severe bilateral uncovertebral and facet osteoarthritis. There is moder ate severity spinal stenosis and probable short segment cord compression. There is mild right and mod erate left foraminal stenosis. C4-5: The disc has mild to moderate loss of height. There is a small posterior disc osteophyte compl ex and mild to moderate right, moderate to severe left uncovertebral and facet osteoarthritis. There is mild left foraminal stenosis. C5-6: The disc has slight loss of height. Minimal bulging of the annulus. Moderate bilateral uncover tebral and facet osteoarthritis. No significant foraminal or spinal stenosis. C6-7: The disc has mild to moderate loss of height. There is a small posterior disc osteophyte compl ex and moderate bilateral facet osteoarthritis. Mild spinal stenosis. No significant foraminal stenos is. C7-T1: The disc annulus slight loss of height. There is left paracentral/foraminal/lateral disc oste ophyte complex and moderate bilateral facet osteoarthritis. Mild left foraminal stenosis. No lytic or sclerotic lesions are demonstrated. Chronic appearing pleural and parenchymal scarring seen of the visualized lung apices. Calcified pleu ral plaques are partly seen. CONCLUSION: 1. No fracture or subluxation of the cervical spine. 2. Multilevel degenerative changes as described. 3. Moderate chronic appearing spinal stenosis with probable short segment cord compression at C3/C4. Electronically signed by: Erwin Watson MD 08/30/2018 8:26 PM EST
[2018-08-30] MEDS ORDERED: Bisacodyl 10 MG Supp RECTAL PRN (20:40)
[2018-08-30] MEDS ORDERED: Sod Chloride 0.9% Inj 1,000 ML IV.SIG SCH (20:45)
--- NOTE | 2018-08-30 20:45 | P.HPIM ---
History of Present Illness Primary Care Physician: Margi Amaya History of Present Illness: This this is an 87-year-old male with a PMH of Lymphoma, Prostate CA and Overactive Bladder who was brought to the ER by Daughters for c/o weakness, decreased PO intake and confusion. Pt's one daughter is RN here at [place], states pt has had progressive decline in function within the last 1wk. Follows w/ Dr. Regan w/ Urology as outpatient for h/o Prostate CA, daughters state plan was for pt to have PET CT prior to initiating therapy w/ Indigo, PET scheduled for 09/10/18 at [place]. Today, pt noted to have worsening weakness , now requiring use of a wheelchair. No recent fall/trauma. Daughter notes pt w/ some complaints of abdominal pain and neck pain, difficult to obtain history from pt due to confusion. On arrival, BP 151/80, HR 95, O2 sat 99% on RA, Afebrile. CBC essentially unremarkable. Creatinine 16.36, previously 3.07 on . K+ 6.7. Calcium 6.5. CPK 375. UA negative for UTI. CXR with bilateral pleural plaques. CT Head with no acute findings. CT C-spine no fracture or subluxation, moderate chronic appearing spinal stenosis with short segment compression C3-C4. 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 Dr. Mcfadden consulted, recommendation for Salgado placement and IVF for CHANDNI. S/p 2700cc urine output following Salgado. Ca/ Insulin/D50 and Kayexalate given. - Diagnosis (1) Encephalopathy (2) CHANDNI (acute kidney injury) (3) Hyperkalemia (4) Hypocalcemia (5) Neck pain (6) Prostate cancer (7) Weakness Review of Systems PAST FAMILY HISTORY: Reviewed. No h/o DM or CAD All other systems reviewed negative except as stated in HPI PMFSH - History History Provided By: Patient, Family Member - Medical History Medical History: Medical History (Last Reviewed 08/30/18 @ 18:31 by HOLDEN Berry) Lymphoma Overactive bladder Prostate CA - Tobacco History Second Hand Smoke Exposure: No Tobacco Use In Past 30 Days: No Smoking Status: Never smoker - Alcohol History How Often Do You Have a Drink Containing Alcohol: 2 to 4 times a month - Substance Use History Substance History: No History of Abuse - Travel History Recent Travel in the [place] Within the Last 8 Weeks: No Recent Travel Out of the Country Within the Last 8 Weeks: No - Immunization History Tetanus Immunization: Unsure Medications and Allergies Active Medications: Active Medications Acetaminophen (Tylenol) 650 mg PO Q4H PRN PRN Reason: Temp > 100.4 Al Hydroxide/Mg Hydroxide (Milk Of Magnesia Liq) 30 ml PO Q12H PRN PRN Reason: Mild Constipation Bisacodyl (Dulcolax Supp) 10 mg RECTAL DAILY PRN PRN Reason: SEVERE CONSITIPATION Calcium Gluconate 1 gm/ Sodium (Chloride) 110 mls @ 110 mls/hr IV.SIG ONCE ONE Stop: 08/30/18 21:11 Sodium Chloride (Ns Inj) 1,000 mls @ 1,000 mls/hr IV.SIG BOLUS TALYA Stop: 08/30/18 21:44 Sodium Chloride (Ns Inj) 1,000 mls @ 100 mls/hr IV.CONT .Q10H TALYA Lactulose (Lactulose Liq) 30 ml PO DAILY PRN PRN Reason: SEVERE CONSITIPATION Non-Formulary Medication (Mirabegron [Myrbetriq]) 25 mg PO DAILY TALYA Ondansetron HCl (Zofran Inj) 4 mg IV.PUSH Q6H PRN PRN Reason: NAUSEA OR VOMITING Senna/Docusate Sodium (Ekta-Colace) 1 tab PO BID TALYA Sennosides (Senokot) 17.2 mg PO Q12H PRN PRN Reason: Moderate Constipation Sodium Chloride (Ns Flush) 2 ml IV.FLUSH PRN PRN PRN Reason: FLUSH AFTER USING IV ACCESS Tamsulosin HCl (Flomax) 0.4 mg PO BID TALYA Allergies Allergy/AdvReac Type Severity Reaction Status Date / Time bee venom protein (honey bee) Allergy Severe Anaphylaxis Unverified 05/20/17 17: 08 penicillin G Allergy Intermediate Swelling Unverified 05/20/17 17:08 vancomycin Allergy Intermediate Rash Unverified 05/20/17 17:08 Home Medications Medication Instructions Recorded Confirmed Type aspirin 81 mg PO DAILY 08/30/18 08/30/18 History mirabegron [Myrbetriq] 25 mg PO DAILY 08/30/18 08/30/18 History tamsulosin [Flomax] 0.4 mg PO BID 08/30/18 08/30/18 History Exam Vital signs: Vital Signs 08/30/18 15:20 08/30/18 15:28 08/30/18 18:16 Temperature 98 F Pulse Rate 95 H 95 H Respiratory Rate 20 18 Blood Pressure 151/80 H 139/71 Pulse Oximetry 99 96 99 08/30/18 19:04 Temperature Pulse Rate 88 Respiratory Rate 20 Blood Pressure 136/65 Pulse Oximetry 94 L Intake & Output 08/30/18 08/30/18 08/31/18 06:59 18:59 06:59 Weight 81.647 kg Narrative: PE: GENERAL: Elderly white male in mild distress, yelling out that he's cold, Daughters at bedside. SKIN: Focused skin assessment warm and dry. HEENT: PERRLA, EOMI. No scleral icterus or conjunctival pallor. No lid lag or facial droop. CARDIOVASCULAR: Regular rate and rhythm. No obvious murmurs to auscultation. No chest tenderness to palpation. RESPIRATORY: No obvious rhonchi or wheezing. Clear to auscultation. Breath sounds equal bilaterally. GASTROINTESTINAL: Abdomen soft, mild suprapubic tenderness to palpation, nondistended. BS normal. Salgado in place MUSCULOSKELETAL: Extremities without clubbing, cyanosis, or edema. No obvious deformities. NEUROLOGICAL: Awake, alert, oriented to person, appears confused, not at baseline per daughters. No focal neurologic deficits. Moving both upper and lower extremities spontaneously. PSYCHIATRIC: Appropriate mood and affect. Insight and judgment normal. Results - Labs CBC & Chem 7: 08/30/18 18:00 08/30/18 18:00 Labs: Short CBC 08/30/18 Range/Units 18:00 WBC 10.4 (4.0-11.0) th/mm3 Hgb 10.8 L (13.0-17.0) gm/dL Hct 31.5 L (39.0-51.0) % Plt Count 304 (150-450) th/mm3 [facility] [place] 08/30/18 18:00 Sodium 134 L Potassium 6.7 H* Chloride 101 Carbon Dioxide 16.3 L BUN 156 H Creatinine 16.36 H* Calcium 6.5 L* Cardiac Enzymes 08/30/18 Range/Units 18:00 Total Creatine Kinase 375 H (39-308) U/L CK-MB (CK-2) 9.5 H (0.5-3.6) ng/mL Troponin I 0.04 (0.02-0.05) ng/mL Liver Function 08/30/18 Range/Units 18:00 Total Bilirubin 1.4 H (0.2-1.0) mg/dL AST 18 (15-37) U/L ALT 14 (12-78) U/L Alkaline Phosphatase 45 (45-117) U/L Albumin 2.8 L (3.4-5.0) g/dL Urine 08/30/18 Range/Units Unknown Urine Color Yellow (Yellw/Straw) Urine Clarity Clear (Clear) Urine pH 5.0 (5.0-8.5) Ur Specific [place] 1.011 (1.002-1.035) Urine Protein 30 H (Neg-Trace) mg/dL Urine Glucose (UA) Negative (Negative) mg/dL - Imaging Impressions Chest X-Ray 08/30/18 18:00 CONCLUSION: 1. Senescent changes with mild bibasilar airspace disease, presumably atelectasis. 2. Bilateral pleural plaques. Head CT 08/30/18 18:00 CONCLUSION: 1. No acute intracranial abnormality. 2. Atrophy and chronic white matter changes. . Cervical Spine CT 08/30/18 18:01 CONCLUSION: 1. No fracture or subluxation of the cervical spine. 2. Multilevel degenerative changes as described. 3. Moderate chronic appearing spinal stenosis with probable short segment cord compression at C3/C4. Abdomen/Pelvis CT 08/30/18 19:21 CONCLUSION: 1. Markedly distended urinary bladder at the time of imaging and of concern for bladder outlet obstruction. Etiology uncertain but prostate is mildly enlarged. There is associated hydronephrosis of both kidneys. No stones are demonstrated. 2. Small hiatal hernia. 3. Atherosclerotic abdominal aorta. 4. 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 Caprini VTE Risk Assessment Caprini VTE Risk Assessment: No/Low Risk (score <= 1) Caprini Risk Assessment Model: Point Value = 1 Point Value = 2 Point Value = 3 Point Value = 5 Age 41-60 Minor surgery BMI > 25 kg/m2 Swollen legs Varicose veins or History of unexplained or recurrent spontaneous Oral contraceptives or hormone replacement Sepsis (< 1 month) Serious lung disease, including pneumonia (< 1 month) Abnormal pulmonary function Acute myocardial infarction Congestive heart failure (< 1 month) History of inflammatory bowel disease Medical patient at bed rest Age 61-74 Arthroscopic surgery Major open surgery (> 45 min) Laparoscopic surgery (> 45 min) Malignancy Confined to bed (> 72 hours) Immobilizing plaster cast Central venous access Age >= 75 History of VTE Family history of VTE Factor V Leiden Prothrombin [id number] Lupus anticoagulant Anticardiolipin antibodies Elevated serum homocysteine Heparin-induced thrombocytopenia Other congenital or acquired thrombophilia Stroke (< 1 month) Elective arthroplasty Hip, pelvis, or leg fracture Acute spinal cord injury (< 1 month) Prophylaxis Regimen: Total Risk Factor Score Risk Level Prophylaxis Regimen 0-1 Low Early ambulation 2 Moderate Order ONE of the following: *Sequential Compression Device (SCD) *Heparin 5000 units SQ BID 3-4 Higher Order ONE of the following medications: *Heparin 5000 units SQ TID *Enoxaparin/Lovenox 40 mg SQ daily (WT < 150 kg, CrCl > 30 mL/min) *Enoxaparin/Lovenox 30 mg SQ daily (WT < 150 kg, CrCl > 10-29 mL/min) *Enoxaparin/Lovenox 30 mg SQ BID (WT < 150 kg, CrCl > 30 mL/min) AND/OR *Sequential Compression Device (SCD) 5 or more Highest Order ONE of the following medications: *Heparin 5000 units SQ TID (Preferred with Epidurals) *Enoxaparin/Lovenox 40 mg SQ daily (WT < 150 kg, CrCl > 30 mL/min) *Enoxaparin/Lovenox 30 mg SQ daily (WT < 150 kg, CrCl > 10-29 mL/min) *Enoxaparin/Lovenox 30 mg SQ BID (WT < 150 kg, CrCl > 30 mL/min) AND *Sequential Compression Device (SCD) Assessment and Plan - Assessment (1) Encephalopathy Code(s): G93.40 - Encephalopathy, unspecified Status: Acute (2) CHANDNI (acute kidney injury) Code(s): N17.9 - Acute kidney failure, unspecified Status: Acute (3) Hyperkalemia Code(s): E87.5 - Hyperkalemia Status: Acute (4) Hypocalcemia Code(s): E83.51 - Hypocalcemia Status: Acute (5) Neck pain Code(s): M54.2 - Cervicalgia Status: Acute (6) Prostate cancer Code(s): C61 - Malignant neoplasm of prostate Status: Acute (7) Weakness Code(s): R53.1 - Weakness Status: Acute - Plan A/P: 1. Encephalopathy: Toxic Encephalopathy from uremia/CHANDNI, CT Head w/ no acute findings, images reviewed. Neuro Checks. U/a negative for UTI. 2. CHANDNI: Creatinine 16.36, previously 3.07 on 10/06/17, secondary to outlet obstruction, likely from enlarged prostate. CT Abd/Pelvis w/ associated hydronephrosis and enlarged prostate, images reviewed. Dr. Mcfadden consulted, recommendation to continue w/ aggressive IVF and correction of electrolytes. Salgado in place w/ 2700cc urine output, monitor I/O, continue IVF-caution w/ fluid overload, repeat labs in am. Flomax. Avoid NSAIDs/Nephrotoxic agents. 3. Prostate CA: follows w/ Dr. Regan as outpatient, [facility] state plan was for pt to have PET (scheduled 09/10/18) prior to initiation of therapy w/ [facility]. Salgado in place as above, will consult Urology if needed for recommendations regarding continuation of Salgado at time of d/c, plan for outpatient follow up w/ Dr. Regan as scheduled on 09/17/18 4. Hyperkalemia: K+ 6.7, secondary to CHANDNI. s/p Ca/Insulin/D50 and Kayexalate , will re-check K+, telemetry, check EKG. 5. Hypocalcemia: Ca 6.5, s/p 1gm Ca, will recheck labs in am, additional replacement as needed. 6. Neck Pain: CT C-Spine w/ chronic appearing spinal stenosis and probable cord compression C3/C4, no emergent surgical intervention needed at this time. Analgesics as tolerated-caution w/ AMS. 7. Weakness: secondary to all of the above, +physical deconditioning, PT for eval/tx. 8. DVT Prophylaxis: SCD/Teds 9. Social work for d/c planning as needed. 10. Case discussed w/ ER physician at length, labs/records/imaging reviewed by me.
[2018-08-30] MEDS: Sod Chloride 0.9% Inj 1,000 ML IV.CONT SCH (21:11)
[2018-08-30] MEDS: Senna/Docusate Sodium 8.6/50 MG Tablet PO SCH (22:44)
[2018-08-30] MEDS: Melatonin 5 MG Tablet PO PRN (22:45)
[2018-08-30] MEDS: Morphine Sulfate Inj 2 MG/ML Vial IV.PUSH PRN (22:53)
[2018-08-31] MEDS: Sod Chloride 0.9% Inj 1,000 ML IV.CONT SCH ×2 (06:13→15:58)
[2018-08-31 06:47] LABS: Baso % (Auto) 0.4 % (0.0-2.0); Eos # (Auto) 0.1 th/mm3 (0.0-0.4); Eos % (Auto) 0.8 % (0.0-4.0); Hematocrit 31.9 % (39.0-51.0); Hemoglobin 10.8 gm/dL (13.0-17.0); Lymph # (Auto) 0.8 th/mm3 (1.0-4.8); Lymph % (Auto) 9.9 % (9.0-44.0); Mean Corpuscular HGB Conc 33.8 % (32.0-36.0); Mean Corpuscular Hemoglobin 32.3 pg (27.0-34.0); Mean Corpuscular Volume 95.6 fL (80.0-100.0); Mean Platelet Volume 7.2 fL (7.0-11.0); Mono # (Auto) 0.3 th/mm3 (0.0-0.9); Mono % (Auto) 3.7 % (0.0-8.0); Neut # (Auto) 7.2 th/mm3 (1.8-7.7); Neut % (Auto) 85.2 % (16.0-70.0); Platelet Count 277 th/mm3 (150-450); Red Blood Count 3.34 mil/mm3 (4.50-5.90); Red Cell Distribution Width 13.1 % (11.6-17.2); White Blood Count 8.5 th/mm3 (4.0-11.0)
[2018-08-31 07:16] LABS: Albumin 2.6 g/dL (3.4-5.0); Calcium 6.4 mg/dL (8.5-10.1); Carbon Dioxide 19.3 meq/L (21.0-32.0); Potassium 5.3 meq/L (3.5-5.1)
[2018-08-31 07:50] LABS: CKMB Percent 2.7 % (0.0-4.0); Creatine Kinase MB 8.3 ng/mL (0.5-3.6)
[2018-08-31] MEDS: Morphine Sulfate Inj 2 MG/ML Vial IV.PUSH PRN ×4 (08:03→22:18)
[2018-08-31] MEDS: Senna/Docusate Sodium 8.6/50 MG Tablet PO SCH (08:03)
[2018-08-31] MEDS: Tolterodine Tartrate LA 2 MG Capsule PO SCH (08:03)
--- NOTE | 2018-08-31 11:55 | P.PN ---
Subjective Interval history: Follow-up metabolic encephalopathy/electrolyte abnormalities/acute on chronic kidney disease August 31, 2018-patient seen and examined, alert oriented to self however confused and unable to tell me why he is here in hospital. patient follows commands Physical Exam Vital signs: Vital Signs 08/30/18 15:20 08/30/18 15:28 08/30/18 18:16 Temperature 98 F Pulse Rate 95 H 95 H Respiratory Rate 20 18 Blood Pressure 151/80 H 139/71 Pulse Oximetry 99 96 99 08/30/18 19:04 08/30/18 22:09 08/30/18 22:15 Temperature 97.9 F Pulse Rate 88 116 H 116 H Respiratory Rate 20 22 Blood Pressure 136/65 153/90 H Pulse Oximetry 94 L 95 08/30/18 22:36 08/31/18 00:00 08/31/18 00:04 Temperature 97.7 F Pulse Rate 98 H 96 H Respiratory Rate 22 Blood Pressure 147/89 H 117/67 Pulse Oximetry 97 08/31/18 04:04 08/31/18 04:45 08/31/18 07:00 Temperature 97.3 F L Pulse Rate 97 H 99 H 103 H Respiratory Rate 20 Blood Pressure 159/93 H Pulse Oximetry 96 08/31/18 08:00 08/31/18 08:12 08/31/18 09:00 Temperature 98.2 F Pulse Rate 98 H 99 H Respiratory Rate 16 16 Blood Pressure 147/79 H Pulse Oximetry 99 08/31/18 09:47 Temperature Pulse Rate 101 H Respiratory Rate Blood Pressure Pulse Oximetry Intake & Output 08/30/18 08/31/18 08/31/18 18:59 06:59 18:59 Intake Total 100 / 100 2109 / 2109 Output Total 4080 / 4080 Balance 100 / 100 -1969 / Weight 81.647 kg 81.2 kg Intake: IV 100 / 100 2109 / 2109 NS Inj 1,000 ML @ 100 mls/hr IV 1000 / 1000 .CONT .Q10H [facility] Rx#:[id number] Ofirmev Inj 1,000 mg In 100 ml 100 / 100 @ 400 mls/hr IV.SIG ONCE ONE Rx #:[id number] Calcium Gluconate Inj 1 GM In 110 / 110 NS Inj 100 ML @ 110 mls/hr IV. SIG ONCE ONE Rx#:[id number] NS Inj 1,000 ML @ 1000 mls/hr 1000 / 1000 IV.SIG BOLUS [facility] Rx#:[id number] Output: Urine 2850 / 2850 Urine Amount (Catheter) 1230 / 1230 Indwelling Urethral Catheter 1230 / 1230 Other: # Voids 1 Weight On Admission 83.8 kg Narrative: PE: GENERAL: NAD SKIN: Focused skin assessment warm and dry. HEENT: PERRLA, EOMI. No scleral icterus or conjunctival pallor. No lid lag or facial droop. CARDIOVASCULAR: Regular rate and rhythm. No obvious murmurs to auscultation. No chest tenderness to palpation. RESPIRATORY: No obvious rhonchi or wheezing. Clear to auscultation. Breath sounds equal bilaterally. GASTROINTESTINAL: Abdomen soft, mild suprapubic tenderness to palpation, nondistended. BS normal. Salgado in place MUSCULOSKELETAL: Extremities without clubbing, cyanosis, or edema. No obvious deformities. NEUROLOGICAL: Awake, alert to self. No focal neurologic deficits. Moving both upper and lower extremities spontaneously. PSYCHIATRIC: Appropriate mood and affect. Insight and judgment poor. - Urinary Catheter Management Straight Cath placed during this visit: yes Reason for continuing: Chronic Urinary Retention Insertion date: 08/30/18 Insertion time: 20:22 Indwelling Urethral Catheter Cath placed during this visit: yes Reason for continuing: Acute urinary retention Insertion date: 08/30/18 Results - Labs CBC & Chem 7: 08/31/18 06:07 08/31/18 06:07 Laboratory Results - last 24 hr 08/30/18 08/30/18 08/30/18 18:00 18:00 Unknown WBC 10.4 RBC 3.28 L Hgb 10.8 L Hct 31.5 L MCV 96.2 MCH 32.9 MCHC 34.2 RDW 13.5 Plt Count 304 MPV 7.3 Neut % (Auto) 81.6 H Lymph % (Auto) 12.7 [place] % (Auto) 4.1 Eos % (Auto) 1.2 Baso % (Auto) 0.4 Neut # (Auto) 8.5 H Lymph # (Auto) 1.3 [place] # (Auto) 0.4 Eos # (Auto) 0.1 Baso # (Auto) 0.0 WBC Differential . Differential Comment Auto diff final Sodium 134 L Potassium 6.7 H* Chloride 101 Carbon Dioxide 16.3 L Anion Gap 17 H BUN 156 H Creatinine 16.36 H* Estimated GFR 3 L Random Glucose 94 Calcium 6.5 L* Prot Corrected Calcium 6.4 L* Magnesium 1.8 Total Bilirubin 1.4 H AST 18 ALT 14 Alkaline Phosphatase 45 Total Creatine Kinase 375 H CK-MB (CK-2) 9.5 H CK-MB (CK-2) % 2.5 Troponin I 0.04 Total Protein 7.5 Albumin 2.8 L Urine Color Yellow Urine Clarity Clear Urine pH 5.0 Ur Specific [place] 1.011 Urine Protein 30 H Urine Glucose (UA) Negative Urine Ketones Negative Urine Occult Blood Moderate H Urine Nitrate Negative Urine Bilirubin Negative Urine Urobilinogen Less than 2 Ur Leukocyte Esterase Negative Urine RBC 7 H Urine WBC 1 Urine Mucus Few H Micro UA Comment Culture not ind Ur Microscopic Review Not Reportable Urine Culture Comments Culture not ind 08/31/18 08/31/18 08/31/18 00:33 06:07 06:07 WBC 8.5 RBC 3.34 L Hgb 10.8 L Hct 31.9 L MCV 95.6 MCH 32.3 MCHC 33.8 RDW 13.1 Plt Count 277 MPV 7.2 Neut % (Auto) 85.2 H Lymph % (Auto) 9.9 [place] % (Auto) 3.7 Eos % (Auto) 0.8 Baso % (Auto) 0.4 Neut # (Auto) 7.2 Lymph # (Auto) 0.8 L [place] # (Auto) 0.3 Eos # (Auto) 0.1 Baso # (Auto) 0.0 WBC Differential . Differential Comment Auto diff final Sodium 142 Potassium 5.3 H D 5.3 H Chloride 112 H D Carbon Dioxide 19.3 L Anion Gap 11 BUN 104 H Creatinine 7.74 H Estimated GFR 7 L Random Glucose 73 L Calcium 6.4 L* Prot Corrected Calcium 6.5 L* Magnesium Total Bilirubin 0.7 AST 18 ALT 14 Alkaline Phosphatase 42 L Total Creatine Kinase 310 H CK-MB (CK-2) 8.3 H CK-MB (CK-2) % 2.7 Troponin I Total Protein 7.0 Albumin 2.6 L Urine Color Urine Clarity Urine pH Ur Specific [place] Urine Protein Urine Glucose (UA) Urine Ketones Urine Occult Blood Urine Nitrate Urine Bilirubin Urine Urobilinogen Ur Leukocyte Esterase Urine RBC Urine WBC Urine Mucus Micro UA Comment Ur Microscopic Review Urine Culture Comments - Imaging Impressions Chest X-Ray 08/30/18 18:00 CONCLUSION: 1. Senescent changes with mild bibasilar airspace disease, presumably atelectasis. 2. Bilateral pleural plaques. Head CT 08/30/18 18:00 CONCLUSION: 1. No acute intracranial abnormality. 2. Atrophy and chronic white matter changes. . Cervical Spine CT 08/30/18 18:01 CONCLUSION: 1. No fracture or subluxation of the cervical spine. 2. Multilevel degenerative changes as described. 3. Moderate chronic appearing spinal stenosis with probable short segment cord compression at C3/C4. Abdomen/Pelvis CT 08/30/18 19:21 CONCLUSION: 1. Markedly distended urinary bladder at the time of imaging and of concern for bladder outlet obstruction. Etiology uncertain but prostate is mildly enlarged. There is associated hydronephrosis of both kidneys. No stones are demonstrated. 2. Small hiatal hernia. 3. Atherosclerotic abdominal aorta. 4. 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 Assessment and Plan - Assessment (1) Encephalopathy Code(s): G93.40 - Encephalopathy, unspecified Status: Acute (2) CHANDNI (acute kidney injury) Code(s): N17.9 - Acute kidney failure, unspecified Status: Acute (3) Hyperkalemia Code(s): E87.5 - Hyperkalemia Status: Acute (4) Hypocalcemia Code(s): E83.51 - Hypocalcemia Status: Acute (5) Neck pain Code(s): M54.2 - Cervicalgia Status: Acute (6) Prostate cancer Code(s): C61 - Malignant neoplasm of prostate Status: Acute (7) Weakness Code(s): R53.1 - Weakness Status: Acute - Plan 87-year-old man with: 1. Encephalopathy-improving: Metabolic/Toxic encephalopathy from uremia/CHANDNI, CT Head w/ no acute findings, images reviewed. 2. CHANDNI: secondary to outlet obstruction. CT Abd/Pelvis w/ associated hydronephrosis and enlarged prostate. Dr. Mcfadden consulted, recommendation to continue w/ aggressive IVF and correction of electrolytes. Salgado in place, monitor I/O, continue IVF-caution w/ fluid overload. Continue Flomax. Avoid NSAIDs/Nephrotoxic agents. 3. Prostate CA: follows w/ Dr. Regan as outpatient, pt to have PET (scheduled 09/10/18) prior to initiation of therapy w/ Indigo. Salgado in place as above, will consult Urology if needed for recommendations regarding continuation of Salgado at time of d/c, plan for outpatient follow up w/ Dr. Regan as scheduled on 09/17/18 4. Hyperkalemia: s/p Ca/Insulin/D50 and Kayexalate. May repeat treatment Telemetry monitoring 5. Hypocalcemia: s/p 1gm Ca, additional replacement as needed. 6. Neck Pain: CT C-Spine w/ chronic appearing spinal stenosis and probable cord compression C3/C4, no emergent surgical intervention needed at this time. Analgesics as tolerated-caution w/ AMS. 7. Weakness: secondary to all of the above, +physical deconditioning, PT for eval/tx. 8. DVT Prophylaxis: SCD/Teds
[2018-08-31] MEDS ORDERED: Calcium Gluconate Inj 2 GM in Dextrose 5% in Water Inj 100 ML IV.SIG ONE ×2 (13:00)
[2018-08-31] MEDS ORDERED: Sodium Polystyrene Sulfonate/Sorbitol Liq 15 GM/60 ML UDC PO ONE (13:00)
--- NOTE | 2018-08-31 14:39 | P.CONNP ---
History of Present Illness Service: Nephrology Consult date: 08/31/18 Requesting Physician: Melanie Sauer Reason for Consult: Acute renal failure Primary Care Provider: Margi Amaya Chief Complaint: Weakness, malaise History of Present Illness: Patient is a 87-year-old male with history of lymphoma treated twice, prostate cancer follows with Dr. Resendiz, BPH, was not feeling well and has malaise, lack of appetite for the past 2 weeks, he came in the emergency and found to have a BUN 156/creatinine 16.3, straight catheter was inserted about 1200 cc of urine obtained in subsequently a Salgado catheter was placed with the 1.7 L of urine, patient BUN is 104/creatinine 7.74, potassium was 6.7 was declined to 5.3 , patient is awake denies any shortness of breath felt weak, he uses a walker at home, urine output has improved he is drinking Kayexalate. Review of Systems Constitutional: Reports anorexia, Reports fatigue, Reports lack of energy, Reports malaise Eyes: Denies blind spots, Denies blurry vision, Denies bulging eyes, Denies change in vision, Denies double vision, Denies discharge, Denies dry eyes, Denies floaters, Denies irritation, Denies itchy eyes, Denies loss of vision, Denies pain, Denies requires corrective lenses, Denies sensitivity to light, Denies other Ears, Nose, Mouth, and Throat: Reports abnormal hearing Cardiovascular: Denies chest pain, Denies chest pain at rest, Denies chest pain with activity, Denies excessive sweating, Denies fainting, Denies fast heart rate, Denies foot swelling, Denies generalized swelling, Denies irregular heart rhythm, Denies leg pain with activity, Denies leg sores, Denies leg swelling, Denies lightheadedness, Denies radiating jaw, neck or arm pain, Denies rapid, pounding, or irregular heartbeat, Denies shortness of breath, Denies shortness of breath with activity, Denies shortness of breath when lying down, Denies shortness of breath causing sudden awakening, Denies slow heart rate, Denies other Respiratory: Denies change in phlegm color, Denies chest congestion, Denies cough, Denies coughing up blood, Denies excessive phlegm production, Denies pain on inspiration, Denies pain with cough, Denies shortness of breath, Denies shortness of breath with activity, Denies snoring, Denies stridor, Denies wheezing, Denies other Gastrointestinal: Reports abdominal pain, Reports nausea Genitourinary: Reports urinary frequency (Was having increased frequency however urine volume was low) Musculoskeletal: Reports muscle weakness Skin/Breast: Denies acne, Denies bleeding lesions, Denies boil, Denies breast swelling, Denies breast skin changes, Denies breast pain, Denies breast lump, Denies change in breast shape, Denies change in hair, Denies change in skin color, Denies changing lesions, Denies dry skin, Denies excessive hair growth, Denies hair loss, Denies itching, Denies lesions, Denies nail changes, Denies new lesions, Denies nipple discharge, Denies non-healing lesions, Denies redness , Denies sensitivity to light, Denies rash, Denies skin pain, Denies skin ulcer , Denies sores, Denies stretch atkins, Denies unusual bruising, Denies wounds, Denies yellowing of the skin, Denies other Neurologic: Reports weakness Psychiatric: Reports other Endocrine: Denies cold intolerance, Denies excessive sweating, Denies flushing, Denies heat intolerance, Denies increased hunger, Denies increased thirst, Denies increased urination, Denies rapid, pounding, or irregular heartbeat, Denies other Hematologic/Lymphatic: Denies easy bleeding, Denies easy bruising, Denies enlarged lymph nodes, Denies other PMFSH - History History Provided By: Patient, Family Member - Medical History Medical History: Medical History (Last Reviewed 08/31/18 @ 08:26 by Gurmeet Steele) Lymphoma Overactive bladder Prostate CA - Family History Family History: Family History (Last Updated 08/31/18 @ 14:31 by Teresa Mcfadden MD) Other Family history non-contributory - Social History I have reviewed the patient's Social History: Yes - Tobacco History Second Hand Smoke Exposure: No Tobacco Use In Past 30 Days: No Smoking Status: Former smoker Tobacco Type: Cigarettes - Alcohol History How Often Do You Have a Drink Containing Alcohol: Never - Substance Use History Substance History: No History of Abuse - Travel History Recent Travel in the [place] Within the Last 8 Weeks: No Recent Travel Out of the Country Within the Last 8 Weeks: No - Immunization History Tetanus Immunization: Unsure Hx Influenza Vaccine This Season: Yes Medications and Allergies Active Medications: Active Medications Acetaminophen (Tylenol) 650 mg PO Q4H PRN PRN Reason: Temp > 100.4 Al Hydroxide/Mg Hydroxide (Milk Of Susy Cochran) 30 ml PO Q12H PRN PRN Reason: Mild Constipation Sodium Chloride (Ns Inj) 1,000 mls @ 100 mls/hr IV.CONT .Q10H [facility] Last Admin: 08/31/18 06:13 Dose: 100 mls/hr Melatonin (Melatonin) 5 mg PO HS PRN PRN Reason: SLEEP Last Admin: 08/30/18 22:45 Dose: 5 mg Morphine Sulfate (Morphine Inj) 2 mg IV.PUSH Q4H PRN PRN Reason: PAIN 6-10 Last Admin: 08/31/18 11:52 Dose: 2 mg Ondansetron HCl (Zofran Inj) 4 mg IV.PUSH Q6H PRN PRN Reason: NAUSEA OR VOMITING Sodium Chloride (Ns Flush) 2 ml IV.FLUSH PRN PRN PRN Reason: FLUSH AFTER USING IV ACCESS Tamsulosin HCl (Flomax) 0.4 mg PO BID [facility] Last Admin: 08/31/18 08:03 Dose: 0.4 mg Tolterodine Tartrate (Detrol La) 2 mg PO DAILY [facility] Last Admin: 08/31/18 08:03 Dose: 2 mg Allergies Allergy/AdvReac Type Severity Reaction Status Date / Time bee venom protein (honey bee) Allergy Severe Anaphylaxis Verified 08/31/18 05:33 clindamycin Allergy Severe Rash Verified 08/31/18 05:34 penicillin G Allergy Intermediate Swelling Verified 08/31/18 05:33 vancomycin Allergy Intermediate Rash Verified 08/31/18 05:33 Home Medications Medication Instructions Recorded Confirmed Type aspirin 81 mg PO DAILY 08/30/18 08/30/18 History mirabegron [Myrbetriq] 25 mg PO DAILY 08/30/18 08/30/18 History tamsulosin [Flomax] 0.4 mg PO BID 08/30/18 08/30/18 History Exam Vital signs: Vital Signs 08/30/18 15:20 08/30/18 15:28 08/30/18 18:16 Temperature 98 F Pulse Rate 95 H 95 H Respiratory Rate 20 18 Blood Pressure 151/80 H 139/71 Pulse Oximetry 99 96 99 08/30/18 19:04 08/30/18 22:09 08/30/18 22:15 Temperature 97.9 F Pulse Rate 88 116 H 116 H Respiratory Rate 20 22 Blood Pressure 136/65 153/90 H Pulse Oximetry 94 L 95 08/30/18 22:36 08/31/18 00:00 08/31/18 00:04 Temperature 97.7 F Pulse Rate 98 H 96 H Respiratory Rate 22 Blood Pressure 147/89 H 117/67 Pulse Oximetry 97 08/31/18 04:04 08/31/18 04:45 08/31/18 07:00 Temperature 97.3 F L Pulse Rate 97 H 99 H 103 H Respiratory Rate 20 Blood Pressure 159/93 H Pulse Oximetry 96 08/31/18 08:00 08/31/18 08:12 08/31/18 09:00 Temperature 98.2 F Pulse Rate 98 H 99 H Respiratory Rate 16 16 Blood Pressure 147/79 H Pulse Oximetry 99 08/31/18 09:47 08/31/18 11:00 08/31/18 12:00 Temperature 98.0 F Pulse Rate 101 H 101 H 97 H Respiratory Rate 18 Blood Pressure 128/75 Pulse Oximetry 96 08/31/18 12:01 Temperature Pulse Rate Respiratory Rate 16 Blood Pressure Pulse Oximetry Intake & Output 08/30/18 08/31/18 08/31/18 18:59 06:59 18:59 Intake Total 100 / 100 2109 / 2109 Output Total 4080 / 4080 Balance 100 / 100 -1969 / Weight 81.647 kg 81.2 kg Intake: IV 100 / 100 2109 / 2109 NS Inj 1,000 ML @ 100 mls/hr IV 1000 / 1000 .CONT .Q10H [facility] Rx#:[id number] Ofirmev Inj 1,000 mg In 100 ml 100 / 100 @ 400 mls/hr IV.SIG ONCE ONE Rx #:[id number] Calcium Gluconate Inj 1 GM In 110 / 110 NS Inj 100 ML @ 110 mls/hr IV. SIG ONCE ONE Rx#:[id number] NS Inj 1,000 ML @ 1000 mls/hr 1000 / 1000 IV.SIG BOLUS [facility] Rx#:[id number] Output: Urine 2850 / 2850 Urine Amount (Catheter) 1230 / 1230 Indwelling Urethral Catheter 1230 / 1230 Other: # Voids 1 Weight On Admission 83.8 kg Narrative: GENERAL: Well-nourished, well-developed patient. SKIN: Warm and dry. HEAD: Normocephalic. EYES: No scleral icterus. No injection or drainage. NECK: Supple, trachea midline. No JVD or lymphadenopathy. CARDIOVASCULAR: Regular rate and rhythm without murmurs, gallops, or rubs. RESPIRATORY: Breath sounds equal bilaterally. No accessory muscle use. GASTROINTESTINAL: Abdomen soft, non-tender, nondistended. EXTREMITIES: Mild edema left leg ulcer NEUROLOGICAL: Awake, alert, and oriented x 3. Non-focal. Results - Lab Results 08/31/18 06:07 08/31/18 06:07 Most recent lab results Calcium 6.4 mg/dL (8.5-10.1) L* 08/31/18 06:07 Magnesium 1.8 mg/dL (1.5-2.5) 08/30/18 18:00 Assessment and Plan - Assessment (1) Acute renal failure Code(s): N17.9 - Acute kidney failure, unspecified Status: Acute (2) Bladder outlet obstruction Code(s): N32.0 - Bladder-neck obstruction Status: Acute (3) Prostate cancer Code(s): C61 - Malignant neoplasm of prostate Status: Acute (4) Hyperkalemia Code(s): E87.5 - Hyperkalemia Status: Acute - Plan Patient with bladder neck obstruction which was released by Salgado catheter insertion patient has good urine output Creatinine declining on its own and potassium is better Continue supportive care keeping well-hydrated Continue with Kayexalate Follow BMP Avoid nephrotoxic agents Discussed with family (1) Acute renal failure Qualifiers: Acute renal failure type: unspecified Qualified Code(s): N17.9 - Acute kidney failure, unspecified
--- NOTE | 2018-08-31 16:47 | P.PNWCN ---
Wound Care Nurse Consult Description: Received consult from Doctor Marina for wound management of heel wound Communicated with: EVELYNE Mclaughlin Recommendation: 1.Please cleanse wound to L medial, anterior ankle with normal saline or wound cleanser and pat dry 2.Apply skin barrier film to periwound and cover with optifoam gentle 4x4 available through misogram only and change dressing every 3 to 5 days or needed if saturated or dislodged. Wound/Pressure Injury - Patient Status Premedicated for Pain Prior to Dressing Change: No - Wound Left medial anterior ankle Wound Assessment: Ongoing Wound Type: Traumatic Wound Is This a Chronic Wound: Yes Requested from Provider a Wound Care Consult: Yes (Wound care saw patient today , patient sees wound Plunify for treatment at home) Length (cm): 0.4 Width (cm): 0.4 Depth (cm): 0.2 (~0.2cm) Wound Bed Appearance: [place] Wound Bed Appearance: 100% pink Surrounding Tissue Appearance: Blanched/Dull, [place] Surrounding Tissue Temperature: Cool Drainage Description: Serous Drainage Amount: Scant Drainage Odor: No Odor Dressing Status: Changed Cleansing Solution: Saline Primary Dressing: Gauze Pad Cover Dressing: Gauze Roll/Wrap Tape Type: Paper Wound Dressing Change Date: 08/31/18 Wound Margin Description: Wound margins are well defined, and open - Additional Information Patient seen on [facility] for wound to heel area. Patient is sitting in chair for wound assessment. Removed telfa and paper tape dressing in place to reveal open wound to L medial anterior ankle. Wound is noted with scant serous drainage, with out odor. Periwound is slightly edematous, pink and blanchable.Wound presents as 100% pink. Another wound that is covered by scab is located within the same edematous pink area just ~0.5cm distally to wound noted above. Patient is seeing wound tech outpatient at home for treatment of wound. Wound was cleansed with normal saline and patted dry. Applied gauze pad secured with rolled gauze and tape. Wound full description, measurement and recommendations are noted above. RN to apply dressing as recommended when supplies available.
[2018-09-01] MEDS: Melatonin 5 MG Tablet PO PRN (00:28)
[2018-09-01] MEDS: Sod Chloride 0.9% Inj 1,000 ML IV.CONT SCH ×3 (01:57→22:54)
[2018-09-01] MEDS: Morphine Sulfate Inj 2 MG/ML Vial IV.PUSH PRN ×3 (02:04→13:53)
--- NOTE | 2018-09-01 06:46 | ECG ---
Date Performed: 08/30/2018 Time Performed: 22:33:16 PTAGE: 87 years EKG: Sinus tachycardia with borderline 1st degree A-V block Left anterior fascicular block Poor R wave progression - cannot rule out anteroseptal infarct Abnormal ECG PREVIOUS TRACING : 08/30/2018 18.31 Since the previous tracing, no significant change noted DOCTOR: Caleb Gill Interpretating Date/Time 09/01/2018 06:43:56
[2018-09-01 06:48] LABS: Baso # (Auto) 0.1 th/mm3 (0.0-0.2); Baso % (Auto) 0.8 % (0.0-2.0); Eos # (Auto) 0.2 th/mm3 (0.0-0.4); Eos % (Auto) 2.6 % (0.0-4.0); Hematocrit 27.9 % (39.0-51.0); Hemoglobin 9.6 gm/dL (13.0-17.0); Lymph # (Auto) 1.6 th/mm3 (1.0-4.8); Lymph % (Auto) 19.2 % (9.0-44.0); Mean Corpuscular HGB Conc 34.4 % (32.0-36.0); Mean Corpuscular Hemoglobin 32.3 pg (27.0-34.0); Mean Corpuscular Volume 93.7 fL (80.0-100.0); Mean Platelet Volume 7.3 fL (7.0-11.0); Mono # (Auto) 0.5 th/mm3 (0.0-0.9); Mono % (Auto) 5.5 % (0.0-8.0); Neut # (Auto) 6.1 th/mm3 (1.8-7.7); Neut % (Auto) 71.9 % (16.0-70.0); Platelet Count 250 th/mm3 (150-450); Red Blood Count 2.98 mil/mm3 (4.50-5.90); Red Cell Distribution Width 13.1 % (11.6-17.2); White Blood Count 8.4 th/mm3 (4.0-11.0)
--- NOTE | 2018-09-01 06:49 | ECG ---
Date Performed: 08/30/2018 Time Performed: 18:31:12 PTAGE: 87 years EKG: Sinus rhythm LEFT ANTERIOR FASCICULAR BLOCK POSSIBLE ANTERIOR MYOCARDIAL INFARCTION ABNORMAL ECG PREVIOUS TRACING : 07/30/2014 17.46 Since the previous tracing, no significant change noted DOCTOR: Caleb Gill Interpretating Date/Time 09/01/2018 06:47:36
[2018-09-01 07:11] LABS: Albumin 2.2 g/dL (3.4-5.0); Calcium 6.3 mg/dL (8.5-10.1); Carbon Dioxide 23.6 meq/L (21.0-32.0); Potassium 4.4 meq/L (3.5-5.1); Total Protein 6.1 g/dL (6.4-8.2)
[2018-09-01] MEDS: Tolterodine Tartrate LA 2 MG Capsule PO SCH (09:01)
[2018-09-01] MEDS ORDERED: Calcium Gluconate Inj 2 GM in Dextrose 5% in Water Inj 100 ML IV.SIG ONE ×2 (10:00)
--- NOTE | 2018-09-01 10:26 | P.PNNP ---
Subjective Interval history: Patient doing better Physical Exam Vital signs: Vital Signs 08/31/18 11:00 08/31/18 12:00 08/31/18 12:01 Temperature 98.0 F Pulse Rate 101 H 96 H Respiratory Rate 18 16 Blood Pressure 128/75 Pulse Oximetry 96 08/31/18 13:00 08/31/18 14:00 08/31/18 15:00 Temperature Pulse Rate 112 H 106 H 110 H Respiratory Rate Blood Pressure Pulse Oximetry 08/31/18 16:00 08/31/18 17:00 08/31/18 17:37 Temperature 97.7 F Pulse Rate 109 H 108 H 110 H Respiratory Rate 18 Blood Pressure 119/77 Pulse Oximetry 96 08/31/18 18:07 08/31/18 19:01 08/31/18 20:00 Temperature Pulse Rate 99 H 101 H Respiratory Rate 20 Blood Pressure Pulse Oximetry 08/31/18 20:10 08/31/18 21:01 08/31/18 22:04 Temperature 98 F Pulse Rate 95 H 99 H 106 H Respiratory Rate 18 Blood Pressure 143/79 H Pulse Oximetry 97 08/31/18 22:57 08/31/18 23:00 09/01/18 00:03 Temperature 98 F Pulse Rate 95 H 98 H 94 H Respiratory Rate 20 Blood Pressure 135/73 Pulse Oximetry 95 09/01/18 01:13 09/01/18 02:08 09/01/18 03:04 Temperature Pulse Rate 96 H 95 H 100 H Respiratory Rate Blood Pressure Pulse Oximetry 09/01/18 03:58 09/01/18 04:06 09/01/18 05:00 Temperature 99.1 F Pulse Rate 88 97 H 89 Respiratory Rate 16 Blood Pressure 115/70 Pulse Oximetry 95 09/01/18 06:02 09/01/18 07:00 09/01/18 07:58 Temperature 97.7 F Pulse Rate 88 82 100 H Respiratory Rate 16 Blood Pressure 117/60 Pulse Oximetry 95 Intake & Output 08/31/18 09/01/18 09/01/18 18:59 06:59 18:59 Intake Total 1940 / 1940 1480 / 1480 Output Total 1850 / 1850 2300 / 2300 Balance 90 / 90 -820 / -820 Weight 79.3 kg 79.2 kg Intake: IV 1120 / 1120 1000 / 1000 NS Inj 1,000 ML @ 100 mls/hr IV 1000 / 1000 1000 / 1000 .CONT .Q10H [facility] Rx#:[id number] Calcium Gluconate Inj 2 GM In 120 / 120 D5W Inj 100 ML @ 120 mls/hr IV. SIG ONCE ONE Rx#:[id number] Oral 820 / 820 480 / 480 Output: Urine Amount (Catheter) 1850 / 1850 2300 / 2300 Indwelling Urethral Catheter 1850 / 1850 2300 / 2300 Other: Date of Last Bowel Movement 09/01/18 09/01/18 Narrative: GENERAL: Well-nourished, well-developed patient. SKIN: Warm and dry. HEAD: Normocephalic. EYES: No scleral icterus. No injection or drainage. NECK: Supple, trachea midline. No JVD or lymphadenopathy. CARDIOVASCULAR: Regular rate and rhythm without murmurs, gallops, or rubs. RESPIRATORY: Breath sounds equal bilaterally. No accessory muscle use. GASTROINTESTINAL: Abdomen soft, non-tender, nondistended. EXTREMITIES: Mild edema left leg ulcer NEUROLOGICAL: Awake, alert, and oriented x 3. Non-focal. - Urinary Catheter Management Straight Cath placed during this visit: yes Reason for continuing: Chronic Urinary Retention Insertion date: 08/30/18 Insertion time: 20:22 Indwelling Urethral Catheter Cath placed during this visit: yes Reason for continuing: Acute urinary retention Insertion date: 08/30/18 Assessment and Plan - Assessment (1) Acute renal failure Code(s): N17.9 - Acute kidney failure, unspecified Status: Acute Qualifiers: Acute renal failure type: unspecified Qualified Code(s): N17.9 - Acute kidney failure, unspecified (2) Bladder outlet obstruction Code(s): N32.0 - Bladder-neck obstruction Status: Acute (3) Prostate cancer Code(s): C61 - Malignant neoplasm of prostate Status: Acute (4) Hyperkalemia Code(s): E87.5 - Hyperkalemia Status: Acute - Plan Patient with bladder neck obstruction which was released by Salgado catheter insertion patient has good urine output Creatinine 1.9 Acute renal failure resolved Calcium ordered Nephrology to see as needed FU urology I will leave Salgado catheter in place.
--- NOTE | 2018-09-01 11:04 | P.CONURO ---
History of Present Illness Service: Urology Consult date: 09/01/18 Requesting Physician: Mike Zee Reason for Consult: Urinary retention Primary Care Provider: Margi Amaya Chief Complaint: Weakness, malaise History of Present Illness: This this is an 87-year-old male with a PMH of Lymphoma, Prostate CA, BPH and Overactive Bladder who was brought to the ER by Daughters for c/o weakness, decreased PO intake and confusion. Pt's one daughter is RN here at [facility], states pt has had progressive decline in function within the last 1wk. Follows w/ Dr. Regan w/ Urology as outpatient for h/o Prostate CA, daughters state plan was for pt to have PET CT prior to initiating therapy w/ [facility] PET scheduled for 09/10/18 at [facility]. Today, pt noted to have worsening weakness , now requiring use of a wheelchair. No recent fall/trauma. Daughter notes pt w/ some complaints of abdominal pain and neck pain, difficult to obtain history from pt due to confusion. On arrival, BP 151/80, HR 95, O2 sat 99% on RA, Afebrile. CBC essentially unremarkable. Creatinine 16.36, previously 3.07 on . K+ 6.7. Calcium 6.5. CPK 375. UA negative for UTI. CXR with bilateral pleural plaques. CT Head with no acute findings. CT C-spine no fracture or subluxation, moderate chronic appearing spinal stenosis with short segment compression C3-C4. 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 Dr. Mcfadden consulted, recommendation for Lopez placement and IVF for CHANDNI. S/p 2700cc urine output following Lopez. Ca/ Insulin/D50 and Kayexalate given. Urology consulted for retention. Currently pt is feeling better his CHANDNI resolved after lopez placed and Cr dropped from 16 to 1.9 now. Other labs and VS are stable. Lopez is in place draining clear yellow urine. He is on Flomax bid. Also takes 2mg Detrol Review of Systems All other systems reviewed negative except as stated in HPI PMFSH - History History Provided By: Patient, Family Member - Medical History Medical History: Medical History (Last Reviewed 08/31/18 @ 08:26 by Gurmeet Steele) Lymphoma Overactive bladder Prostate CA - Family History Family History: Family History (Last Updated 08/31/18 @ 14:31 by Teresa Mcfadden MD) Other Family history non-contributory - Tobacco History Second Hand Smoke Exposure: No Tobacco Use In Past 30 Days: No Smoking Status: Former smoker Tobacco Type: Cigarettes - Alcohol History How Often Do You Have a Drink Containing Alcohol: Never - Substance Use History Substance History: No History of Abuse - Travel History Recent Travel in the [place] Within the Last 8 Weeks: No Recent Travel Out of the Country Within the Last 8 Weeks: No - Immunization History Tetanus Immunization: Unsure Hx Influenza Vaccine This Season: Yes Medications and Allergies Active Medications: Active Medications Acetaminophen (Tylenol) 650 mg PO Q4H PRN PRN Reason: Temp > 100.4 Al Hydroxide/Mg Hydroxide (Milk Of Magnesia Liq) 30 ml PO Q12H PRN PRN Reason: Mild Constipation Calcium Carbonate (Oscal) 500 mg PO BID [facility] Sodium Chloride (Ns Inj) 1,000 mls @ 100 mls/hr IV.CONT .Q10H [facility] Last Admin: 09/01/18 01:57 Dose: 100 mls/hr Calcium Gluconate 2 gm/ (Dextrose) 120 mls @ 120 mls/hr IV.SIG ONCE ONE Stop: 09/01/18 10:59 Last Admin: 09/01/18 09:45 Dose: 100 mls/hr Melatonin (Melatonin) 5 mg PO HS PRN PRN Reason: SLEEP Last Admin: 09/01/18 00:28 Dose: 5 mg Morphine Sulfate (Morphine Inj) 2 mg IV.PUSH Q4H PRN PRN Reason: PAIN 6-10 Last Admin: 09/01/18 06:08 Dose: 2 mg Ondansetron HCl (Zofran Inj) 4 mg IV.PUSH Q6H PRN PRN Reason: NAUSEA OR VOMITING Sodium Chloride (Ns Flush) 2 ml IV.FLUSH PRN PRN PRN Reason: FLUSH AFTER USING IV ACCESS Last Admin: 09/01/18 06:08 Dose: 2 ml Tamsulosin HCl (Flomax) 0.4 mg PO BID [facility] Last Admin: 09/01/18 09:01 Dose: 0.4 mg Tolterodine Tartrate (Detrol La) 2 mg PO DAILY [facility] Last Admin: 09/01/18 09:01 Dose: 2 mg Allergies Allergy/AdvReac Type Severity Reaction Status Date / Time bee venom protein (honey bee) Allergy Severe Anaphylaxis Verified 08/31/18 05:33 clindamycin Allergy Severe Rash Verified 08/31/18 05:34 penicillin G Allergy Intermediate Swelling Verified 08/31/18 05:33 vancomycin Allergy Intermediate Rash Verified 08/31/18 05:33 Home Medications Medication Instructions Recorded Confirmed Type aspirin 81 mg PO DAILY 08/30/18 08/30/18 History mirabegron [Myrbetriq] 25 mg PO DAILY 08/30/18 08/30/18 History tamsulosin [Flomax] 0.4 mg PO BID 08/30/18 08/30/18 History Physical Exam Vital Signs - 24 hr 08/31/18 11:00 08/31/18 12:00 08/31/18 12:01 Temperature 98.0 F Pulse Rate 101 H 96 H Respiratory Rate 18 16 Blood Pressure 128/75 Pulse Oximetry 96 08/31/18 13:00 08/31/18 14:00 08/31/18 15:00 Temperature Pulse Rate 112 H 106 H 110 H Respiratory Rate Blood Pressure Pulse Oximetry 08/31/18 16:00 08/31/18 17:00 08/31/18 17:37 Temperature 97.7 F Pulse Rate 109 H 108 H 110 H Respiratory Rate 18 Blood Pressure 119/77 Pulse Oximetry 96 08/31/18 18:07 08/31/18 19:01 08/31/18 20:00 Temperature Pulse Rate 99 H 101 H Respiratory Rate 20 Blood Pressure Pulse Oximetry 08/31/18 20:10 08/31/18 21:01 08/31/18 22:04 Temperature 98 F Pulse Rate 95 H 99 H 106 H Respiratory Rate 18 Blood Pressure 143/79 H Pulse Oximetry 97 08/31/18 22:57 08/31/18 23:00 09/01/18 00:03 Temperature 98 F Pulse Rate 95 H 98 H 94 H Respiratory Rate 20 Blood Pressure 135/73 Pulse Oximetry 95 09/01/18 01:13 09/01/18 02:08 09/01/18 03:04 Temperature Pulse Rate 96 H 95 H 100 H Respiratory Rate Blood Pressure Pulse Oximetry 09/01/18 03:58 09/01/18 04:06 09/01/18 05:00 Temperature 99.1 F Pulse Rate 88 97 H 89 Respiratory Rate 16 Blood Pressure 115/70 Pulse Oximetry 95 09/01/18 06:02 09/01/18 07:00 09/01/18 07:58 Temperature 97.7 F Pulse Rate 88 82 100 H Respiratory Rate 16 Blood Pressure 117/60 Pulse Oximetry 95 Physical Exam: GENERAL: This is a well-nourished, well-developed patient, in no apparent distress. SKIN: No rashes, ecchymoses or lesions. Cool and dry. HEAD: Atraumatic. Normocephalic. CARDIOVASCULAR: Regular rate and rhythm without murmurs, gallops, or rubs. RESPIRATORY: Clear to auscultation. Breath sounds equal bilaterally. No wheezes , rales, or rhonchi. GASTROINTESTINAL: Abdomen soft, non-tender, nondistended. No hepato-splenomegaly , or palpable masses. No guarding. GENITOURINARY: Bladder is not distended, Lopez is in place MUSCULOSKELETAL: Extremities without clubbing, cyanosis, or edema. NEUROLOGICAL: Awake and alert. . Laboratory Results - last 24 hr 09/01/18 09/01/18 05:46 05:46 WBC 8.4 RBC 2.98 L Hgb 9.6 L Hct 27.9 L MCV 93.7 MCH 32.3 MCHC 34.4 RDW 13.1 Plt Count 250 MPV 7.3 Neut % (Auto) 71.9 H Lymph % (Auto) 19.2 Wilkinson % (Auto) 5.5 Eos % (Auto) 2.6 Baso % (Auto) 0.8 Neut # (Auto) 6.1 Lymph # (Auto) 1.6 Wilkinson # (Auto) 0.5 Eos # (Auto) 0.2 Baso # (Auto) 0.1 WBC Differential . Differential Comment Auto diff final Sodium 144 Potassium 4.4 D Chloride 115 H Carbon Dioxide 23.6 Anion Gap 5 BUN 40 H Creatinine 1.97 H Estimated GFR 32 L Random Glucose 81 Calcium 6.3 L* Calcium Adj for Albumin 6.8 L* Total Bilirubin 0.3 AST 13 L ALT 11 L Alkaline Phosphatase 35 L Total Protein 6.1 L D Albumin 2.2 L Result Diagrams: 09/01/18 05:46 09/01/18 05:46 Imaging: ITS Impressions Chest X-Ray 08/30/18 18:00 CONCLUSION: 1. Senescent changes with mild bibasilar airspace disease, presumably atelectasis. 2. Bilateral pleural plaques. Head CT 08/30/18 18:00 CONCLUSION: 1. No acute intracranial abnormality. 2. Atrophy and chronic white matter changes. . Cervical Spine CT 08/30/18 18:01 CONCLUSION: 1. No fracture or subluxation of the cervical spine. 2. Multilevel degenerative changes as described. 3. Moderate chronic appearing spinal stenosis with probable short segment cord compression at C3/C4. Abdomen/Pelvis CT 08/30/18 19:21 CONCLUSION: 1. Markedly distended urinary bladder at the time of imaging and of concern for bladder outlet obstruction. Etiology uncertain but prostate is mildly enlarged. There is associated hydronephrosis of both kidneys. No stones are demonstrated. 2. Small hiatal hernia. 3. Atherosclerotic abdominal aorta. 4. 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 Assessment and Plan - Plan 87y.o M with history as per HPI. With Urinary retention and CHANDNI caused by it Its resolving with lopez cath - No additional intervention - Continue flomax BID - If he can tolerate lopez well and has no bladder spasms his Detrol 2mg can be stopped because it can cause retention issues - Keep lopez catheter in and d/c with it - Pt will need to f/u with Dr Regan as scheduled in September Discussed Condition With: Dr Tiffany HERNANDEZ attending
--- NOTE | 2018-09-01 11:21 | P.PN ---
Subjective Interval history: Follow-up metabolic encephalopathy/electrolyte abnormalities/acute on chronic kidney disease August 31, 2018-patient seen and examined, alert oriented to self however confused and unable to tell me why he is here in hospital. patient follows commands September 01, 2018-patient seen and examined, pleasantly confused and stated he doesn't know why he is in the hospital. Otherwise vitals stable. Potassium normalized. Calcium improving. Good urine output. Afebrile. Physical Exam Vital signs: Vital Signs 08/31/18 12:00 08/31/18 12:01 08/31/18 13:00 Temperature 98.0 F Pulse Rate 96 H 112 H Respiratory Rate 18 16 Blood Pressure 128/75 Pulse Oximetry 96 08/31/18 14:00 08/31/18 15:00 08/31/18 16:00 Temperature 97.7 F Pulse Rate 106 H 110 H 109 H Respiratory Rate 18 Blood Pressure 119/77 Pulse Oximetry 96 08/31/18 17:00 08/31/18 17:37 08/31/18 18:07 Temperature Pulse Rate 108 H 110 H Respiratory Rate 20 Blood Pressure Pulse Oximetry 08/31/18 19:01 08/31/18 20:00 08/31/18 20:10 Temperature 98 F Pulse Rate 99 H 101 H 95 H Respiratory Rate 18 Blood Pressure 143/79 H Pulse Oximetry 97 08/31/18 21:01 08/31/18 22:04 08/31/18 22:57 Temperature Pulse Rate 99 H 106 H 95 H Respiratory Rate Blood Pressure Pulse Oximetry 08/31/18 23:00 09/01/18 00:03 09/01/18 01:13 Temperature 98 F Pulse Rate 98 H 94 H 96 H Respiratory Rate 20 Blood Pressure 135/73 Pulse Oximetry 95 09/01/18 02:08 09/01/18 03:04 09/01/18 03:58 Temperature 99.1 F Pulse Rate 95 H 100 H 88 Respiratory Rate 16 Blood Pressure 115/70 Pulse Oximetry 95 09/01/18 04:06 09/01/18 05:00 09/01/18 06:02 Temperature Pulse Rate 97 H 89 88 Respiratory Rate Blood Pressure Pulse Oximetry 09/01/18 07:00 09/01/18 07:58 Temperature 97.7 F Pulse Rate 82 100 H Respiratory Rate 16 Blood Pressure 117/60 Pulse Oximetry 95 Intake & Output 08/31/18 09/01/18 09/01/18 18:59 06:59 18:59 Intake Total 1940 / 1940 1480 / 1480 Output Total 1849 2300 / 2300 Balance 90 / 90 -820 / -820 Weight 79.3 kg 79.2 kg Intake: IV 1120 / 1120 1000 / 1000 NS Inj 1,000 ML @ 100 mls/hr IV 1000 / 1000 1000 / 1000 .CONT .Q10H [facility] Rx#:[id number] Calcium Gluconate Inj 2 GM In 120 / 120 D5W Inj 100 ML @ 120 mls/hr IV. SIG ONCE ONE Rx#:[id number] Oral 820 / 820 480 / 480 Output: Urine Amount (Catheter) 1849 2300 / 2300 Indwelling Urethral Catheter 1849 2300 / 2300 Other: Date of Last Bowel Movement 09/01/18 09/01/18 Narrative: GENERAL: Well-nourished, well-developed patient and sitting in a chair SKIN: Warm and dry. HEAD: Normocephalic. EYES: No scleral icterus. No injection or drainage. NECK: Supple, trachea midline. No JVD or lymphadenopathy. CARDIOVASCULAR: Regular rate and rhythm without murmurs, gallops, or rubs. RESPIRATORY: Breath sounds equal bilaterally. No accessory muscle use. GASTROINTESTINAL: Abdomen soft, non-tender, nondistended. EXTREMITIES: Mild edema left leg ulcer NEUROLOGICAL: Awake, alert, and oriented x 3. Non-focal. - Urinary Catheter Management Straight Cath placed during this visit: yes Reason for continuing: Chronic Urinary Retention Insertion date: 08/30/18 Insertion time: 20:22 Indwelling Urethral Catheter Cath placed during this visit: yes Reason for continuing: Acute urinary retention Insertion date: 08/30/18 Results - Labs CBC & Chem 7: 09/01/18 05:46 09/01/18 05:46 Laboratory Results - last 24 hr 09/01/18 09/01/18 05:46 05:46 WBC 8.4 RBC 2.98 L Hgb 9.6 L Hct 27.9 L MCV 93.7 MCH 32.3 MCHC 34.4 RDW 13.1 Plt Count 250 MPV 7.3 Neut % (Auto) 71.9 H Lymph % (Auto) 19.2 [place] % (Auto) 5.5 Eos % (Auto) 2.6 Baso % (Auto) 0.8 Neut # (Auto) 6.1 Lymph # (Auto) 1.6 [place] # (Auto) 0.5 Eos # (Auto) 0.2 Baso # (Auto) 0.1 WBC Differential . Differential Comment Auto diff final Sodium 144 Potassium 4.4 D Chloride 115 H Carbon Dioxide 23.6 Anion Gap 5 BUN 40 H Creatinine 1.97 H Estimated GFR 32 L Random Glucose 81 Calcium 6.3 L* Calcium Adj for Albumin 6.8 L* Total Bilirubin 0.3 AST 13 L ALT 11 L Alkaline Phosphatase 35 L Total Protein 6.1 L D Albumin 2.2 L Assessment and Plan - Assessment (1) Encephalopathy Code(s): G93.40 - Encephalopathy, unspecified Status: Acute (2) CHANDNI (acute kidney injury) Code(s): N17.9 - Acute kidney failure, unspecified Status: Acute (3) Hyperkalemia Code(s): E87.5 - Hyperkalemia Status: Acute (4) Hypocalcemia Code(s): E83.51 - Hypocalcemia Status: Acute (5) Neck pain Code(s): M54.2 - Cervicalgia Status: Acute (6) Prostate cancer Code(s): C61 - Malignant neoplasm of prostate Status: Acute (7) Weakness Code(s): R53.1 - Weakness Status: Acute - Plan 87-year-old man with: 1. Encephalopathy-improving: Metabolic/Toxic encephalopathy from uremia/CHANDNI, CT Head w/ no acute findings. Improving. Dementia may be a contributory factor 2. CHANDNI: Renal indices improving secondary to outlet obstruction. CT Abd/Pelvis w/ associated hydronephrosis and enlarged prostate. Dr. Mcfadden consulted, recommendation to continue w/ aggressive IVF and correction of electrolytes. Salgado in place, monitor I/O, continue IVF-caution w/ fluid overload. Continue Flomax. Avoid NSAIDs/Nephrotoxic agents. 3. Prostate CA: follows w/ Dr. Regan as outpatient, pt to have PET (scheduled 09/10/18) prior to initiation of therapy w/ [facility]. Salgado in place as above, will consult Urology if needed for recommendations regarding continuation of Salgado at time of d/c, plan for outpatient follow up w/ Dr. Regan as scheduled on 09/17/18 Appreciate input from Urology 4. Hyperkalemia: Resolved s/p Ca/Insulin/D50 and Kayexalate. Telemetry monitoring 5. Hypocalcemia: s/p IV Ca, additional replacement as needed. 6. Neck Pain: CT C-Spine w/ chronic appearing spinal stenosis and probable cord compression C3/C4, no emergent surgical intervention needed at this time. Analgesics as tolerated-caution w/ AMS. 7. Weakness: secondary to all of the above, +physical deconditioning, PT for eval/tx. 8. Left leg ulcer Appreciate input from wound care nurse 9. DVT Prophylaxis: SCD/Teds
[2018-09-01] MEDS: Calcium Carbonate 500 MG Tablet PO SCH ×2 (12:07→21:43)
[2018-09-01] MEDS: Acetaminophen 325 MG Tablet PO PRN (21:43)
[2018-09-02 07:50] LABS: Albumin 2.3 g/dL (3.4-5.0); Calcium 6.9 mg/dL (8.5-10.1); Potassium 3.8 meq/L (3.5-5.1); Total Protein 6.2 g/dL (6.4-8.2)
--- NOTE | 2018-09-02 08:58 | P.PN ---
Subjective Interval history: awake and alert, no complains of abdominal pain, headaches, nausea or vomiting oriented to person and place, knows the President lopez in place- draining grossly clear urine Physical Exam Vital signs: Vital Signs 09/01/18 09:00 09/01/18 10:00 09/01/18 11:00 Temperature Pulse Rate 90 94 H 93 H Respiratory Rate Blood Pressure Pulse Oximetry 09/01/18 12:00 09/01/18 13:00 09/01/18 14:00 Temperature 97.5 F L Pulse Rate 96 H 104 H 100 H Respiratory Rate 16 Blood Pressure 139/74 Pulse Oximetry 96 09/01/18 15:00 09/01/18 15:37 09/01/18 16:00 Temperature 97.3 F L Pulse Rate 99 H 98 H 100 H Respiratory Rate 16 Blood Pressure 122/74 Pulse Oximetry 99 09/01/18 17:00 09/01/18 18:00 09/01/18 19:00 Temperature Pulse Rate 104 H 102 H 101 H Respiratory Rate Blood Pressure Pulse Oximetry 09/01/18 20:00 09/01/18 21:00 09/01/18 22:00 Temperature 98.2 F Pulse Rate 102 H 104 H 101 H Respiratory Rate 16 Blood Pressure 142/81 H Pulse Oximetry 97 09/01/18 23:00 09/02/18 00:00 09/02/18 01:00 Temperature 98.2 F Pulse Rate 89 95 H 116 H Respiratory Rate 16 Blood Pressure 130/76 Pulse Oximetry 91 L 09/02/18 02:00 09/02/18 03:00 09/02/18 04:00 Temperature 98.3 F Pulse Rate 98 H 98 H 91 H Respiratory Rate 14 Blood Pressure 141/86 H Pulse Oximetry 95 09/02/18 05:00 09/02/18 06:00 Temperature Pulse Rate 91 H 89 Respiratory Rate Blood Pressure Pulse Oximetry Intake & Output 09/01/18 09/02/18 09/02/18 18:59 06:59 18:59 Intake Total 2380 / 2380 1000 / 1000 Output Total 1050 / 1050 1250 / 1250 Balance 1330 / 1330 -250 / -250 Weight 79.2 kg 80.5 kg Intake: IV 1120 / 1120 1000 / 1000 NS Inj 1,000 ML @ 100 mls/hr IV 1000 / 1000 1000 / 1000 .CONT .Q10H [facility] Rx#:[id number] Calcium Gluconate Inj 2 GM In 120 / 120 D5W Inj 100 ML @ 120 mls/hr IV. SIG ONCE ONE Rx#:[id number] Oral 1260 / 1260 Output: Urine 1250 / 1250 Urine Amount (Catheter) 1050 / 1050 Indwelling Urethral Catheter 1050 / 1050 Other: Date of Last Bowel Movement 09/01/18 09/01/18 # Bowel Movements 1 Narrative: GENERAL: awake and alert, oriented x 3 HEAD: Normocephalic. EYES: No scleral icterus. No injection or drainage. NECK: Supple, trachea midline. No JVD or lymphadenopathy. CARDIOVASCULAR: Regular rate and rhythm RESPIRATORY: Breath sounds equal bilaterally. No accessory muscle use. GASTROINTESTINAL: Abdomen soft, non-tender, nondistended. lopez catheter in place EXTREMITIES: no edema, left medial malleolar area- superficial dry wound, no erythema NEUROLOGICAL: Awake, alert, and oriented x 3. Non-focal. ff all commands and very interactive - Urinary Catheter Management Straight Cath placed during this visit: yes Reason for continuing: Chronic Urinary Retention Insertion date: 08/30/18 Insertion time: 20:22 Indwelling Urethral Catheter Cath placed during this visit: yes Reason for continuing: Acute urinary retention Insertion date: 08/30/18 Results - Labs CBC & Chem 7: 09/01/18 05:46 09/03/18 05:36 Laboratory Results - last 24 hr 08/31/18 09/02/18 15:33 06:23 Sodium 142 Potassium 3.8 Chloride 112 H Carbon Dioxide 22.0 Anion Gap 8 BUN 18 Creatinine 1.30 Estimated GFR 52 L Random Glucose 83 Calcium 6.9 L* Calcium Adj for Albumin 7.4 L* Total Bilirubin 0.3 AST 15 ALT 12 Alkaline Phosphatase 38 L Total Protein 6.2 L Albumin 2.3 L Free PSA 3.9 Total PSA 37.0 H PSA Free/Total Ratio 0 Assessment and Plan - Assessment (1) Encephalopathy Code(s): G93.40 - Encephalopathy, unspecified Status: Acute (2) CHANDNI (acute kidney injury) Code(s): N17.9 - Acute kidney failure, unspecified Status: Acute (3) Hyperkalemia Code(s): E87.5 - Hyperkalemia Status: Acute (4) Hypocalcemia Code(s): E83.51 - Hypocalcemia Status: Acute (5) Neck pain Code(s): M54.2 - Cervicalgia Status: Acute (6) Prostate cancer Code(s): C61 - Malignant neoplasm of prostate Status: Acute (7) Weakness Code(s): R53.1 - Weakness Status: Acute - Plan 87-year-old man with: Metabolic Encephalopathy secondary to obstructive uropathy/uremia/CHANDNI, - MS improved CHANDNI - Resolved secondary to obstructive uropathy from Prostate cancer - continue lopez on discharge Continue Flomax. Avoid NSAIDs/Nephrotoxic agents. heplock IVF and monitor BMP Prostate CA: follows w/ Dr. Regan as outpatient, pt to have PET (scheduled 09/10/18) prior to initiation of therapy w/ [facility]. Lopez in place as above, plan for outpatient follow up w/ Dr. Regan as scheduled on 09/17/18 Appreciate input from Urology- will DC Detrol as recommended Hyperkalemia: Resolved s/p Ca/Insulin/D50 and Kayexalate. Telemetry monitoring Hypocalcemia: s/p IV Ca, additional replacement as needed. started on Calcium 500 mg po bid by Nephrology Neck Pain: stable CT C-Spine w/ chronic appearing spinal stenosis and probable cord compression C3/C4, no emergent surgical intervention needed at this time. Analgesics as tolerated-caution w/ AMS. Weakness- no focal deficits secondary to all of the above, +physical deconditioning, PT for eval/tx. - consult to evaluate- - educate how to get around with a lopez Left leg ulcer- superficial - no signs of infection Appreciate input from wound care nurse DVT Prophylaxis: SCD/Teds Increase activity- out of bed for all meals, ambulate with walker and lopez- PT consulted DC planning- rehab- if going home will need home health care arrangements- PT and nursing- home with lopez
[2018-09-02] MEDS: Calcium Carbonate 500 MG Tablet PO SCH ×2 (09:15→20:55)
[2018-09-02] MEDS: Tolterodine Tartrate LA 2 MG Capsule PO SCH (09:21)
[2018-09-02] MEDS: Sod Chloride 0.9% Inj 1,000 ML IV.CONT SCH (12:05)
[2018-09-02] MEDS: Acetaminophen 325 MG Tablet PO PRN (13:56)
[2018-09-02 23:59] VITALS: RESP 17
[2018-09-03 06:33] LABS: Calcium 6.7 mg/dL (8.5-10.1); Carbon Dioxide 24.7 meq/L (21.0-32.0); Potassium 3.5 meq/L (3.5-5.1)
[2018-09-03 06:40] LABS: Albumin 2.3 g/dL (3.4-5.0); Calcium-Albumin Corrected 8.1 mg/dL (8.5-10.1)
--- NOTE | 2018-09-03 08:46 | P.PN ---
Subjective Interval history: Follow-up acute kidney injury and urinary retention. He is pleasantly confused has no complaints. Seen with son discussed with case management. Physical Exam Vital signs: Vital Signs 09/02/18 09:00 09/02/18 10:00 09/02/18 11:00 Temperature Pulse Rate 80 82 86 Respiratory Rate Blood Pressure Pulse Oximetry 09/02/18 12:00 09/02/18 13:00 09/02/18 14:00 Temperature Pulse Rate 87 80 84 Respiratory Rate 18 Blood Pressure 146/78 H Pulse Oximetry 98 09/02/18 15:00 09/02/18 16:00 09/02/18 17:00 Temperature Pulse Rate 84 86 84 Respiratory Rate 18 Blood Pressure 123/71 Pulse Oximetry 98 09/02/18 18:00 09/02/18 20:00 09/02/18 23:58 Temperature 97.6 F 97.5 F L Pulse Rate 80 92 H 78 Respiratory Rate 16 17 Blood Pressure 117/60 133/63 Pulse Oximetry 97 98 Intake & Output 09/02/18 09/03/18 09/03/18 18:59 06:59 18:59 Intake Total 1800 / 1800 480 / 480 Output Total 900 / 900 750 / 750 Balance 900 / 900 -270 / -270 Weight 80.5 kg Intake: IV 1000 / 1000 NS Inj 1,000 ML @ 100 mls/hr IV 1000 / 1000 .CONT .Q10H [facility] Rx#:[id number] Oral 800 / 800 480 / 480 Output: Urine 900 / 900 Urine Amount (Catheter) 750 / 750 Indwelling Urethral Catheter 750 / 750 Other: Date of Last Bowel Movement 09/01/18 09/02/18 Narrative: GENERAL: awake and alert, oriented x 3 CARDIOVASCULAR: Regular rate and rhythm RESPIRATORY: Breath sounds equal bilaterally. No accessory muscle use. GASTROINTESTINAL: Abdomen soft, non-tender, nondistended. lopez catheter in place EXTREMITIES: no edema, left medial malleolar area- superficial dry wound, no erythema NEUROLOGICAL: Awake, alert, and oriented x 3. Non-focal. ff all commands and very interactive - Urinary Catheter Management Straight Cath placed during this visit: yes Reason for continuing: Chronic Urinary Retention Insertion date: 08/30/18 Insertion time: 20:22 Indwelling Urethral Catheter Cath placed during this visit: yes Reason for continuing: Acute urinary retention Insertion date: 08/30/18 Results - Labs CBC & Chem 7: 09/01/18 05:46 09/03/18 05:36 Laboratory Results - last 24 hr 09/03/18 05:36 Sodium 142 Potassium 3.5 Chloride 109 H Carbon Dioxide 24.7 Anion Gap 8 BUN 13 Creatinine 1.14 Estimated GFR 60 L Random Glucose 78 Calcium 6.7 L* Calcium Adj for Albumin 8.1 L Albumin 2.3 L - Imaging ITS Impressions Chest X-Ray 08/30/18 18:00 CONCLUSION: 1. Senescent changes with mild bibasilar airspace disease, presumably atelectasis. 2. Bilateral pleural plaques. Head CT 08/30/18 18:00 CONCLUSION: 1. No acute intracranial abnormality. 2. Atrophy and chronic white matter changes. . Cervical Spine CT 08/30/18 18:01 CONCLUSION: 1. No fracture or subluxation of the cervical spine. 2. Multilevel degenerative changes as described. 3. Moderate chronic appearing spinal stenosis with probable short segment cord compression at C3/C4. Abdomen/Pelvis CT 08/30/18 19:21 CONCLUSION: 1. Markedly distended urinary bladder at the time of imaging and of concern for bladder outlet obstruction. Etiology uncertain but prostate is mildly enlarged. There is associated hydronephrosis of both kidneys. No stones are demonstrated. 2. Small hiatal hernia. 3. Atherosclerotic abdominal aorta. 4. 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 - Procedures none Assessment and Plan - Assessment (1) Encephalopathy Code(s): G93.40 - Encephalopathy, unspecified Status: Acute (2) CHANDNI (acute kidney injury) Code(s): N17.9 - Acute kidney failure, unspecified Status: Acute (3) Hyperkalemia Code(s): E87.5 - Hyperkalemia Status: Acute (4) Hypocalcemia Code(s): E83.51 - Hypocalcemia Status: Acute (5) Neck pain Code(s): M54.2 - Cervicalgia Status: Acute (6) Prostate cancer Code(s): C61 - Malignant neoplasm of prostate Status: Acute (7) Weakness Code(s): R53.1 - Weakness Status: Acute - Plan 87-year-old man with: Metabolic Encephalopathy secondary to obstructive uropathy/uremia/CHANDNI, - MS improved CHANDNI - Resolved secondary to obstructive uropathy from Prostate cancer - continue lopez on discharge Continue Flomax. Discontinue Detrol no more spasms Avoid NSAIDs/Nephrotoxic agents. heplock IVF and monitor BMP Prostate CA: follows w/ Dr. Regan as outpatient, pt to have PET (scheduled 09/10/18) prior to initiation of therapy w/ Indigo. Lopez in place as above, plan for outpatient follow up w/ Dr. Regan as scheduled on 09/17/18 Appreciate input from Urology- will DC Detrol as recommended Hyperkalemia: Resolved s/p Ca/Insulin/D50 and Kayexalate. Telemetry monitoring Hypocalcemia: s/p IV Ca, additional replacement as needed. started on Calcium 500 mg po bid by Nephrology Neck Pain: stable CT C-Spine w/ chronic appearing spinal stenosis and probable cord compression C3/C4, no emergent surgical intervention needed at this time. Analgesics as tolerated-caution w/ AMS. Weakness- no focal deficits secondary to all of the above, +physical deconditioning, PT for eval/tx. - consult to evaluate- - educate how to get around with a lopez Left LE ulcer- superficial - no signs of infection Appreciate input from wound care nurse DVT Prophylaxis: SCD/Teds Increase activity- out of bed for all meals, ambulate with walker and lopez- PT consulted DC planning- will need home health care arrangements- PT and nursing- home with lopez Discharge Planning: Stable for discharge
--- NOTE | 2018-09-03 08:48 | P.DCO ---
- Diagnosis (1) Acute renal failure Status: Acute (2) Bladder outlet obstruction Status: Acute - Physical Therapy Order: Evaluate and treat, Improve ambulation, Strength and gait training - Home Health Nursing Order: Medical education, Signs/symptoms of disease process, Medication education-adverse effect, Wound care and dressing changes, Nursing assessment with vital signs, Salgado catheter maintenance - Case Management Consult Case Management Consult-Home Health: Yes - Certification I have seen patient Janak Martinez on 09/03/18. My clinical findings support the need for the requested home health care services because: Deconditioned with increased weakness I certify that my clinical findings support that this patient is homebound because: Unsafe to leave home unassisted, Need for psychosocial assistance (1) Acute renal failure Qualifiers: Acute renal failure type: unspecified Qualified Code(s): N17.9 - Acute kidney failure, unspecified
[2018-09-03] MEDS: Calcium Carbonate 500 MG Tablet PO SCH (09:16)
[2018-09-03 12:07] VITALS: BP 122/63; PULSE 86; TEMP 98; O2SAT 97
[2018-09-03] MEDS: Acetaminophen 325 MG Tablet PO PRN (12:40)
--- NOTE | 2018-09-03 16:04 | P.DS ---
Date of admission: 08/30/18 20:41 Primary care physician: Margi Amaya Brief History from admission: This this is an 87-year-old male with a PMH of Lymphoma, Prostate CA and Overactive Bladder who was brought to the ER by Daughters for c/o weakness, decreased PO intake and confusion. Pt's one daughter is RN here at [place], states pt has had progressive decline in function within the last 1wk. Follows w/ Dr. Regan w/ Urology as outpatient for h/o Prostate CA, daughters state plan was for pt to have PET CT prior to initiating therapy w/ Indigo, PET scheduled for 09/10/18 at [place]. Today, pt noted to have worsening weakness , now requiring use of a wheelchair. No recent fall/trauma. Daughter notes pt w/ some complaints of abdominal pain and neck pain, difficult to obtain history from pt due to confusion. On arrival, BP 151/80, HR 95, O2 sat 99% on RA, Afebrile. CBC essentially unremarkable. Creatinine 16.36, previously 3.07 on . K+ 6.7. Calcium 6.5. CPK 375. UA negative for UTI. CXR with bilateral pleural plaques. CT Head with no acute findings. CT C-spine no fracture or subluxation, moderate chronic appearing spinal stenosis with short segment compression C3-C4. 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 Dr. Mcfadden consulted, recommendation for Lopez placement and IVF for CHANDNI. S/p 2700cc urine output following Lopez. Ca/ Insulin/D50 and Kayexalate given. DS: Diagnosis - Discharge Diagnosis (1) Encephalopathy Status: Acute (2) CHANDNI (acute kidney injury) Status: Acute (3) Hyperkalemia Status: Acute (4) Hypocalcemia Status: Acute (5) Neck pain Status: Acute (6) Prostate cancer Status: Acute (7) Weakness Status: Acute DS: Summary Hospital Course: 87-year-old man with: Metabolic Encephalopathy secondary to obstructive uropathy/uremia/CHANDNI, - MS improved CHANDNI - Resolved secondary to obstructive uropathy from Prostate cancer - continue lopez on discharge Continue Flomax. Discontinue Detrol no more spasms Avoid NSAIDs/Nephrotoxic agents. heplock IVF and monitor BMP Prostate CA: follows w/ Dr. Regan as outpatient, pt to have PET (scheduled 09/10/18) prior to initiation of therapy w/ Indigo. Lopez in place as above, plan for outpatient follow up w/ Dr. Regan as scheduled on 09/17/18 Appreciate input from Urology- will DC Detrol as recommended Hyperkalemia: Resolved s/p Ca/Insulin/D50 and Kayexalate. Telemetry monitoring Hypocalcemia: s/p IV Ca, additional replacement as needed. started on Calcium 500 mg po bid by Nephrology Neck Pain: stable CT C-Spine w/ chronic appearing spinal stenosis and probable cord compression C3/C4, no emergent surgical intervention needed at this time. Analgesics as tolerated-caution w/ AMS. Weakness- no focal deficits secondary to all of the above, +physical deconditioning, PT for eval/tx. - consult to evaluate- - educate how to get around with a lopez Left LE ulcer- superficial - no signs of infection Appreciate input from wound care nurse DVT Prophylaxis: SCD/Teds Increase activity- out of bed for all meals, ambulate with walker and lopez- PT consulted DC planning- will need home health care arrangements- PT and nursing- home with lopez - Time Spent with Patient Total time spent providing and/or coordinating discharge services: Greater than 30 minutes - Quality: VTE Deep Vein Thrombosis/Pulmonary Embolism Present on Admission: No Exam Vital signs: Vital Signs 09/02/18 17:00 09/02/18 18:00 09/02/18 20:00 Temperature 97.6 F Pulse Rate 84 80 92 H Respiratory Rate 16 Blood Pressure 117/60 Pulse Oximetry 97 09/02/18 23:58 09/03/18 08:00 09/03/18 12:00 Temperature 97.5 F L 97.9 F 98.0 F Pulse Rate 78 75 86 Respiratory Rate 17 17 17 Blood Pressure 133/63 144/69 H 122/63 Pulse Oximetry 98 96 97 Intake & Output 09/02/18 09/03/18 09/03/18 18:59 06:59 18:59 Intake Total 1800 / 1800 480 / 480 Output Total 900 / 900 750 / 750 Balance 900 / 900 -270 / -270 Weight 80.5 kg Intake: IV 1000 / 1000 NS Inj 1,000 ML @ 100 mls/hr IV 1000 / 1000 .CONT .Q10H [facility] Rx#:[id number] Oral 800 / 800 480 / 480 Output: Urine 900 / 900 Urine Amount (Catheter) 750 / 750 Indwelling Urethral Catheter 750 / 750 Other: Date of Last Bowel Movement 09/01/18 09/02/18 09/02/18 Narrative: GENERAL: awake and alert, oriented x 3 CARDIOVASCULAR: Regular rate and rhythm RESPIRATORY: Breath sounds equal bilaterally. No accessory muscle use. GASTROINTESTINAL: Abdomen soft, non-tender, nondistended. lopez catheter in place EXTREMITIES: no edema, left medial malleolar area- superficial dry wound, no erythema NEUROLOGICAL: Awake, alert, and oriented x 3. Non-focal. ff all commands and very interactive Results Procedures completed during hospitalization: none Labs on day of discharge: Labs from last 24 hours 09/03/18 05:36 Sodium 142 Potassium 3.5 Chloride 109 H Carbon Dioxide 24.7 Anion Gap 8 BUN 13 Creatinine 1.14 Estimated GFR 60 L Random Glucose 78 Calcium 6.7 L* Calcium Adj for Albumin 8.1 L Albumin 2.3 L - Impressions ITS Impressions Chest X-Ray 08/30/18 18:00 CONCLUSION: 1. Senescent changes with mild bibasilar airspace disease, presumably atelectasis. 2. Bilateral pleural plaques. Head CT 08/30/18 18:00 CONCLUSION: 1. No acute intracranial abnormality. 2. Atrophy and chronic white matter changes. . Cervical Spine CT 08/30/18 18:01 CONCLUSION: 1. No fracture or subluxation of the cervical spine. 2. Multilevel degenerative changes as described. 3. Moderate chronic appearing spinal stenosis with probable short segment cord compression at C3/C4. Abdomen/Pelvis CT 08/30/18 19:21 CONCLUSION: 1. Markedly distended urinary bladder at the time of imaging and of concern for bladder outlet obstruction. Etiology uncertain but prostate is mildly enlarged. There is associated hydronephrosis of both kidneys. No stones are demonstrated. 2. Small hiatal hernia. 3. Atherosclerotic abdominal aorta. 4. 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 Discharge Plan - Discharge Disposition Patient Disposition: W/Home Health Service - Discharge Condition Condition: Stable - Discharge Order Discharge Orders: Discharge Order (Routine); Ordered 09/03/18 Ordered By: Nadeem Elizalde - Physicians Team Primary Care Provider: Margi Amaya Attending Provider: Nadeem Elizalde Other Providers: Teresa Mcfadden MD ; Teena Dickinson ; Joe Allen MD
== END 2018-09-03 15:14 | disposition home health service (06) ==
LOC: NEPE 15:07 → NEDA 20:41 → HCIS 21:55 → N07 09-02 19:49
PROVIDERS: ADMIT Internal Medicine; ATTEND Internal Medicine